=== PATIENT | female | born 1955 | race Caucasian/White ===

== ENCOUNTER 2016-11-20 08:42 | Emergency (ER) | payer MEDICARE, OTHER ==
[~2016-11-20] VITALS: Ht 167.6 cm; Wt 79.4 kg
[~2016-11-20 08:42] MED LIST: ABILIFY MAINTE300 M1 IM; ABILIFY15 MG PO; ABILIFY20 MG PO; ALBUTEROL2.5 MG/3 M INH; BISMATROL262 MG/15 PO; BUPROPION XL300 MG PO; CALCIUM 600 +1 EA12 PO; CENTRUM SILVER1 EAC5 PO; CERTAVITE SR-A1 EACH PO; CORICIDIN HBP355 ML PO; CYANOCOBAL1000 MCG/M IM; DOCUSATE SODIU100 MG PO; DOXYCYCLINE HY100 MG PO; ESTRACE1 MG PO; FERROUS SULFAT325 MG PO; HYDROCORT-PRAMO30 G1 PR; IBUPROFEN200 M1 PO; IPRAT-ALBUT 0.5-3 ML INH; LAMOTRIGINE200 MG PO; LEVAQUIN750 MG PO; LEVOFLOXACIN750 MG PO; LISINOPRIL2.5 MG PO; LORAZEPAM0.5 MG PO; METAMUCIL POWD283 GM PO; METAMUCIL POWD288 GM PO; MILLIPRED5 MG PO; NYSTATIN1 EAC1 PO; OMEPRAZOLE20 MG PO; PREDNISONE10 MG PO; PREDNISONE20 MG PO; PROAIR HFA8.5 GM INH; PROCTOSOL-HC30 GM PR; QVAR7.3 G1 INH; SPIRIVA18 MCG INH; SYMBICORT 16010.2 GM INH; TESSALON PERLE100 MG PO; VENTOLIN HFA18 GM INH; VITAMIN D1000 UNIT PO; VITAMIN D250000 UNIT PO; WELLBUTRIN XL300 MG PO; ZOLPIDEM TARTRAT5 MG PO
== END 2016-11-20 10:35 | disposition home or self-care (01) ==
LOC: ED 08:42
DX: G43.909 Migraine, unspecified, not intractable, without status migrainosus (principal); J44.9 Chronic obstructive pulmonary disease, unspecified; E11.9 Type 2 diabetes mellitus without complications; K21.9 Gastro-esophageal reflux disease without esophagitis; Z87.891 Personal history of nicotine dependence; Z90.710 Acquired absence of both cervix and uterus; Z88.0 Allergy status to penicillin; Z88.8 Allergy status to other drugs, medicaments and biological substances; Z79.52 Long term (current) use of systemic steroids; Z79.899 Other long term (current) drug therapy
CPT/HCPCS: 96361; 96374; 96375; 99282; J1200; J1885; J2765; J7030

== ENCOUNTER 2016-11-22 07:25 | Emergency (ER) | payer MEDICARE, OTHER ==
[~2016-11-22] VITALS: Ht 167.6 cm; Wt 79.4 kg
[2016-11-22] MEDS ORDERED: DALIRESP500 MCG PO (09:14)
[2016-11-22] MEDS ORDERED: LAMOTRIGINE200 MG PO (09:15)
[2016-11-22] MEDS ORDERED: CEROVITE ADVAN1 EACH PO (09:15)
[2016-11-22] MEDS ORDERED: ABILIFY MAINTE300 M1 IM (09:16)
[2016-11-22] MEDS ORDERED: METFORMIN HCL500 MG PO (09:16)
[2016-11-22] MEDS ORDERED: ZESTRIL2.5 MG PO (09:16)
[2016-11-23] MEDS ORDERED: INCRUSE ELLI62.5 MCG INH (04:34)
[2016-11-23] MEDS ORDERED: ACETAMINOPHEN500 M1 PO (04:37)
[2016-11-23] MEDS ORDERED: ALBUTEROL2.5 MG/3 M INH (04:37)
[2016-11-23] MEDS ORDERED: DOK100 MG PO (04:38)
[2016-11-23] MEDS ORDERED: IBUPROFEN400 MG PO (04:40)
== END 2016-11-22 10:32 | disposition home or self-care (01) ==
LOC: ED 07:25
DX: G43.909 Migraine, unspecified, not intractable, without status migrainosus (principal); E11.9 Type 2 diabetes mellitus without complications; J44.9 Chronic obstructive pulmonary disease, unspecified; F20.9 Schizophrenia, unspecified; Z90.710 Acquired absence of both cervix and uterus; Z98.890 Other specified postprocedural states; Z87.891 Personal history of nicotine dependence; Z88.0 Allergy status to penicillin; Z79.52 Long term (current) use of systemic steroids; Z79.899 Other long term (current) drug therapy
CPT/HCPCS: 70450; 80053; 81001; 85025; 96361; 96374; 96375; 99284; J1170; J1885; J2405; J7030

== ENCOUNTER 2016-11-23 03:49 | Emergency (ER) | payer MEDICARE, OTHER ==
[~2016-11-23] VITALS: Ht 167.6 cm; Wt 79.4 kg
[~2016-11-23 03:49] MED LIST changes: +CEROVITE ADVAN1 EACH PO; +DALIRESP500 MCG PO; +METFORMIN HCL500 MG PO; +ZESTRIL2.5 MG PO
[2016-11-23] MEDS ORDERED: INCRUSE ELLI62.5 MCG INH (04:34)
[2016-11-23] MEDS ORDERED: ALBUTEROL2.5 MG/3 M INH (04:37)
[2016-11-23] MEDS ORDERED: ACETAMINOPHEN500 M1 PO (04:37)
[2016-11-23] MEDS ORDERED: DOK100 MG PO (04:38)
[2016-11-23] MEDS ORDERED: IBUPROFEN400 MG PO (04:40)
[2016-11-24] MEDS ORDERED: METHYLPREDNISOLO4 M1 PO (12:06)
[2016-11-24] MEDS ORDERED: ZITHROMAX250 MG PO (12:06)
== END 2016-11-23 05:20 | disposition home or self-care (01) ==
LOC: ED 03:49
DX: R51 Headache (principal); J44.9 Chronic obstructive pulmonary disease, unspecified; E11.9 Type 2 diabetes mellitus without complications; K21.9 Gastro-esophageal reflux disease without esophagitis; F20.9 Schizophrenia, unspecified; F17.200 Nicotine dependence, unspecified, uncomplicated; Z90.710 Acquired absence of both cervix and uterus; Z88.8 Allergy status to other drugs, medicaments and biological substances; Z88.0 Allergy status to penicillin; Z79.899 Other long term (current) drug therapy; Z79.52 Long term (current) use of systemic steroids; Z79.84 Long term (current) use of oral hypoglycemic drugs
CPT/HCPCS: 94640; 96372; 96374; 96375; 99284; J1885; J2765; J3030

== ENCOUNTER 2016-11-24 11:04 | Emergency (ER) | payer MEDICARE, OTHER ==
[~2016-11-24] VITALS: Ht 167.6 cm; Wt 88.9 kg
[~2016-11-24 11:04] MED LIST changes: +ACETAMINOPHEN500 M1 PO; +DOK100 MG PO; +IBUPROFEN400 MG PO; +INCRUSE ELLI62.5 MCG INH
[2016-11-24] MEDS ORDERED: METHYLPREDNISOLO4 M1 PO (12:06)
[2016-11-24] MEDS ORDERED: ZITHROMAX250 MG PO (12:06)
== END 2016-11-24 12:21 | disposition home or self-care (01) ==
LOC: ED 11:04
DX: J44.1 Chronic obstructive pulmonary disease with (acute) exacerbation (principal); E11.9 Type 2 diabetes mellitus without complications; I10 Essential (primary) hypertension; K21.9 Gastro-esophageal reflux disease without esophagitis; F31.9 Bipolar disorder, unspecified; I48.91 Unspecified atrial fibrillation; F20.9 Schizophrenia, unspecified; F17.200 Nicotine dependence, unspecified, uncomplicated; Z90.710 Acquired absence of both cervix and uterus; Z88.0 Allergy status to penicillin; Z88.8 Allergy status to other drugs, medicaments and biological substances; Z79.899 Other long term (current) drug therapy
CPT/HCPCS: 36600; 71020; 80048; 82803; 85025; 99284

== ENCOUNTER 2016-11-26 03:50 | Inpatient (IN) | payer MEDICARE, OTHER ==
[~2016-11-26] VITALS: Ht 165.1 cm; Wt 85.5 kg
[~2016-11-26 03:50] MED LIST changes: +METHYLPREDNISOLO4 M1 PO; +ZITHROMAX250 MG PO
[2016-11-26] MEDS ORDERED: COLACE100 MG PO (10:41)
[2016-11-26] MEDS ORDERED: PREDNISONE5 MG PO (10:46)
--- NOTE | 2016-11-26 11:46 | NUR ---
PT STATED THAT HER HEAD FELT "A LITTLE BETTER" AFTER THE LAST DOSE OF TORADOL. PT IS SLEEPING, BUT WAKES EASILY TO VOICE. NASAL CANULA IN PLACE ON 3L.
--- NOTE | 2016-11-26 12:40 | NUR ---
MED REC COMPLETE WITH FACILITY MAY.
--- NOTE | 2016-11-26 14:22 | NUR ---
PT STATES SHE FEELS BETTER. PT IS MORE ACTIVE, MORE TALKITIVE. NO MOANING OR CRYING NOTED. PT ALERT & ORIETATITED X4. PT HAS BEEN RESTING, WAKES EASILY WITH VOICE OR TOUCH.
--- NOTE | 2016-11-26 14:54 | NUR ---
PT IS AWAKE, REQUESTING THE PHONE BE PLACED CLOSER TO HER.
--- NOTE | 2016-11-26 18:46 | NUR ---
CAME TO UNIT EARLY IN SHIFT WITH SEVERE MIGRANE HEADACHE. PAIN NOT RELIEVED BY TYLENOL OR TORADOL. TRAMADOL WAS GIVEN AND EFFECTIVE. PT REPORTS PAIN IS CONTROLED. ONE DOSE LASIX GIVEN, VOIDING WELL. 1 PERSON ASSIST FOR TRANSFER TO BSC OR CHAIR. TOLERATES REGULAR DIET WELL, BLOOD SUGAR 91 AND 133, NO INSULIN ORDERED. FIELD START IV IN L HAND.
--- NOTE | 2016-11-26 19:05 | NUR ---
SHIFT REPORT RECIEVED. PATIENT RESTING IN BED. PATIENT COMPLAINS OF 8/10 HEADACHE PAIN AND REQUESTED PRN PAIN MEDICATION. WILL RETURN WITH PAIN MEDS. CALL LIGHT IN REACH.
--- NOTE | 2016-11-26 19:50 | NUR ---
PATIENT ASSESSMENT COMPLETED AND DOCUMENTED. PATIENT GIVEN PRN MEDS FOR HEADACHE, REPORTED PAIN 8/10. EVENING MEDS GIVEN PER ORDERS. LUNG SOUNDS CLEAR THROUGHOUT, DIMINISHED IN BASES. SCHEDULED PRN NEB TREATMENT GIVEN. PULSE OX, O2 92%. 2L NC. PATIENT DENIES NAUSEA. BOWEL SOUNDS ACTIVE, ABD SOFT AND NONTENDER. PATIENT UP TO BEDSIDE CAMMODE, 1PA. APPEARDS CORDINATED, BUT WEAK. PATIENT BACK TO BED, HOB ELEVATED >45 DEGREES. CALL LIGHT IN REACH.
--- NOTE | 2016-11-26 22:00 | NUR ---
PATIENT REPORTED 7/10 PAIN, PRN PAIN MEDS GIVEN PER ORDER. PATIENT UP TO CAMMODE. SBA, APPEARD STEAD. PATIENT AAOX3. PULSE OX, O2 86% TIRTRATE O2 FROM 2L TO 3L NC. O2 INCREASED TO 92%. LUNG SOUNDS, EXPIRTORY WHEEZE THROUGHOUT. BREATHING MILDLY LABORED. PATIENT POSITIONED IN BED, HOB ELEVATED >45 DEGREES. CALL LIGHT IN REACH.
--- NOTE | 2016-11-26 22:30 | NUR ---
PATIENT ON PULSE OX, 3L NC. PATIENT RESTING IN BED. NO FURTHER REQUEST. CALL LIGHT IN REACH.
--- NOTE | 2016-11-27 00:30 | NUR ---
PATIENT REQUESTED PRN TYLENOL FOR HEADACHE PAIN 07/27. PRN MED GIVEN PER ORDER. PATIENT UP TO CAMORIONE, SBJune. PATIENT STEADY AND STATES THAT SHE "CAN GET UP TO BEDSIDE CAMMODE ON MY OWN". RN ADVISED PATIENT TO CALL FOR ASSISTANCE WHEN NEEDING TO USE THE BATHROOM FOR SAFETY REASONS. PATIENT AGREES TO CALL FOR ASSISTANCE FOR TOILETING. PATIENT BACK TO BED. NEB TREATING GIVEN PER ORDER. PULSE OX, O2 94% ON 3L NC. NO FURTHER REQUEST. CALL LIGHT IN REACH.
--- NOTE | 2016-11-27 03:15 | NUR ---
PATIENT UP IN THE RECLINER. REQUEST ASSIST BACK TO BED. PATIENT REPORT PAIN AT TOLERABLE LEVEL, 4/10. PATIENT RESTING IN BED. NO REQUEST AT THIS TIME. PULSE OX, O2 92% 3L NC. CALL LIGHT IN REACH.
--- NOTE | 2016-11-27 06:19 | NUR ---
PATIENT RESTED OFF AND ON THROUGHOUT NIGHT. PULSE OX, 3L NC, O2 88-94%. EXPIRTORY WHEEZE THROUGHOUT LUNGS, SCHEDULED DUONEB TREATMENTS. IV FEILD START LEFT IN PLACE, DRESSING CHANGED. URINE OUTPUT QS. GLUCOSE CHECKS. ADA DIET. MAINTAIN SIDE POSITION TO PREVENT ASPIRATION PER ORDERS. PRN PAIN MEDS GIVEN X3 FOR HEADACHE. PATIENT UP TO BSC WITH SBA.
--- NOTE | 2016-11-27 06:20 | NUR ---
PT UP TO BSC INDEPENDENTLY WHILE I WAS IN ROOM. STEADY ON FEET. VOIDED AND THEN RETURNED TO BED. NEW ATTENDS PROVIDED PER REQUEST. COFFEE PROVIDED PER REQUEST. PT DENIES FURTHER NEEDS, CALL LIGHT IS WITHIN REACH.
--- NOTE | 2016-11-27 06:52 | NUR ---
SPOKE WITH DR. GONZALEZ ABOUT PT BEING A DIFFICULT IV START AND THAT HER FIELD START WAS RE-DRESSED. SHE STATES THAT IT IS OK TO LEAVE THAT IV IN PLACE SO LONG IT IS PATENT.
--- NOTE | 2016-11-27 07:01 | NUR ---
ALL NOTES, ASSESSMENTS, AND CARE PLAN REVIEWED BY THIS RN.
--- NOTE | 2016-11-27 07:25 | NUR ---
RECIEVED BEDSIDE REPORT FROM FABIOLA NICHOLS AND FABIOLA DE LEON. PT SLEEPING ON LEFT SIDE, BREATHING EVEN AND UNLABORED. DID NOT WAKE TO DOOR OPENING.
--- NOTE | 2016-11-27 07:47 | NUR ---
PT UP TO CHAIR INDEPENDTENTLY. PT AWAKE AND ALERT, COMPLAINS OF INCREASING PAIN IN HEAD. PT CHATTY AND APPROPRIATE DURING ASSESMENT. LUNGS WHEEZY AND DIM. NO EDEMA.
--- NOTE | 2016-11-27 10:40 | NUR ---
PT REPORTED TO RN THAT HER LEFT CHEST HURTS. PT DESCRIBED IT "JUST HURTS". PT DENINED SOB, TINGLING, NAUSEA/VOMITING. ADVISED DR GONZALEZ, ORDER ENTERED FOR EKG. EKG DONE, RESULTS TO DR GONZALEZ. PT COMPLAINING OF PAIN IN LEFT HAND IV SITE. PT REPORTS BURNING AND STINGING. IV STOPPED.
--- NOTE | 2016-11-27 10:49 | NUR ---
PT REPORTS FEELING BETTER, WOULD LIKE TO TAKE A SHOWER. COMPUTER AIDED DESIGN DESIGNER IS ASSISTING WITH SHOWER. HR 92, PULSE OX 93.
--- NOTE | 2016-11-27 12:01 | NUR ---
PT UP TO CHAIR, NEW IV STARTED IN LEFT WRIST. IV IN LEFT HAND DC. WRAPS REMOVED FROM RIGHT HAND. PULSE OX METER REAPPLIED TO LEFT HAND.
--- NOTE | 2016-11-27 13:18 | NUR ---
PT BACK IN BED, NO COMPLAINTS OF PAIN OR DISCOMFORT. PT STATES NO ADDITIONAL EPISODES OF CHEST DISCOMFORT. PT RESTING ON RIGHT SIDE. IV SALINE LOCKED. O2 IN PLACE.
--- NOTE | 2016-11-27 17:48 | NUR ---
PT UP TO SHOWER WTIH UNDERWEAR FINISHER, TOLERATED WELL. UP TO CHAIR FOR MEALS X3. LUNG SOUNDS IMPROVING, HOWEVER STILL WHEEZY IN ALL LOBES. O2 ON AT 3L. PT COMPLAINED OF CHEST PAIN, EKG ORDERED, WAS UNREMARKABLE. PT STATED CHEST PAIN RESOLVED. VOIDING WELL, TRANSFERING TO [facility]. IMATRIX GIVEN FOR HEADACHE, EFFECTIVE. TRAMADOL GIVEN WELL, EFFECTIVE. NEW IV STARTED IN LEFT WRIST, TOLERATED WELL AND FLUSHES WELL.
--- NOTE | 2016-11-27 21:25 | NUR ---
PT ASSESSMENT COMPLETE. PT RESTING IN BED QUIETLY. PT STATES SOB IS BETTER TODAY. O2 SATS UPON ENTERING ROOM WAS 88% ON 2 LPM, INCREASED O2 TO 3 LPM, SATS NOW 90%, WILL CONTINUE TO MONITOR. PT C/O HEADACHE 10/27, ULTRAM GIVEN. PT STATES HAVING A PRODUCTIVE COUGH "AFTER NEB TREATMENTS, I AM ABLE TO COUGH UP A BUNCH OF STUFF". IV SALINE LOCKED, PATENT AND INTACT, FLUSHES WELL. HS MEDS GIVEN. CONTINUOUS PULSE OXIMETER IN PLACE. CALL LIGHT WITHIN REACH. PT DENIES ANY FURTHER NEEDS AT THIS TIME.
--- NOTE | 2016-11-28 00:15 | NUR ---
PT SLEEPING, RR EVEN AND UNLABORED. PT ON 3 LPM O2 VIA NASAL CANNULA, SATS 90%. PT APPEARS COMFORTABLE AT THIS TIME. CALL LIGHT WITHIN REACH.
--- NOTE | 2016-11-28 03:45 | NUR ---
PT AWAKE RESTING IN BED. SATS 91% ON 3 LPM O2. CRACKERS AND COFFEE GIVEN PER PT REQUEST. PT UP AMBULATING IN ROOM INDEPENDENTLY. USING BEDSIDE COMMODE, VOIDING WELL. CALL LIGHT WITHIN REACH. PT DENIES ANY FURTHER NEEDS AT THIS TIME.
--- NOTE | 2016-11-28 07:48 | NUR ---
PATIENT SITTING UP IN CHAIR. FRESH ICE WATER GIVEN. PATIENT AGREES TO SHOWER AFTER EATING BREAKFAST. CALL BUTTON IN REACH. NO OTHER NEEDS AT THIS TIME.
--- NOTE | 2016-11-28 09:20 | NUR ---
PT AWAKE SITTING UP IN RECLINER. TOOK SHOWER WITH ASSIST OF [place] M[place]S. ATE ALL OF BREAKFAST, YASMIN WELL. C/O 07/27 HEADACHE. MEDICATED WITH TRAMADOL. PT ALSO COMPLAINS OF PRODUCTIVE COUGH THAT SHE IS UNABLE TO "MOVE OUT." ALERT AND ORIENTED. IV FLUSHES WELL. CALL LIGHT WITHIN REACH. PT INDEPENDENT TO BSC.
--- NOTE | 2016-11-28 11:35 | NUR ---
PT SITTING UP IN RECLINER AWAKE. IV SL AFTER INFUSION. PT DENIES NEEDS OR CONCERNS AT THIS TIME. CALL LIGHT WITHIN REACH.
--- NOTE | 2016-11-28 11:43 | NUR ---
PATIENT SITTING UP IN CHAIR WITH LUNCH. CALL BUTTON IN REACH. NO OTHER NEEDS AT THIS TIME.
--- NOTE | 2016-11-28 14:06 | NUR ---
patient in bed resting with eyes closed. fresh ice water given. call button in reach.
--- NOTE | 2016-11-28 14:10 | NUR ---
PT RESTING IN BED, EYES CLOSED, RESP EVEN AND UNLABORED.
--- NOTE | 2016-11-28 15:55 | NUR ---
PT HAS BEEN ADMITTED SEVERAL TIMES LATELY-SHE RECOGNIZED ME, SAID STACIA. SHE WAS LOOKING OUT THE WINDOW, SITTING IN THE CHAIR EATING LUNCH. I FELT I SHOULD LET HER FINISH LUNCH, WILL FOLLOW NEEDED
--- NOTE | 2016-11-28 17:53 | NUR ---
INDEPENDENT IN ROOM. 3L 02 NC. COUGHING. ZITHROMAX. ULTRAM X1 FOR HEADACHE. MUCINEX STARTED TO ENCOURAGE BREAKUP OF LUNG FLEGM. BLOOD SUGAR CHECKS. NO COVERAGE. METFORMIN.
--- NOTE | 2016-11-28 19:40 | NUR ---
RECIEVED REPORT FROM DAY SHIFT. PT RESTING IN BED. INDEPENDENT IN ROOM. DENIES NEEDS AT THIS TIME. CALL WRIGHT IN REACH.
--- NOTE | 2016-11-28 21:15 | NUR ---
PT UP TO BSC INDEPENDENTLY. VOIDED. C/O PAIN 9/10 IN THROAT FROM COUGHING. DRY COUGH NOTED, STATES SHE IS COUGHING UP A LITTLE SPUTUM. EXP. WHEEZES AUSCULTATED THROUGHOUT LUNG FITCH. PAIN MEDS ADMINISTERED PER MAY.
--- NOTE | 2016-11-28 23:29 | NUR ---
PT SLEEPING. CONT. PULSE OX IN PLACE. 3L VIA NC IN PLACE. CALL WRIGHT IN REACH.
--- NOTE | 2016-11-29 01:13 | NUR ---
PT SLEEPING. CALL WRIGHT IN REACH.
--- NOTE | 2016-11-29 03:28 | NUR ---
PT SITTING UP IN CHAIR, STATES SHE IS "TRYING TO MANAGE BILLS." PT DENIES PAIN AT THIS TIME. NC IN PLACE WITH CONT. PULSE OX. PT TO BED. DENIES NEEDS. CALL WRIGHT IN REACH.
--- NOTE | 2016-11-29 04:33 | NUR ---
PT C/O JANSEN. STATES SHE "COUGHED HERSELF INTO A HEADACHE." PAIN MEDICATION ADMINISTERED PER MAY. WATER PITCHER FILLED. PT DENIES FURTHER REQUESTS. CALL BALL IN REACH.
--- NOTE | 2016-11-29 06:24 | NUR ---
TRAMADOL X 2 LAST NIGHT. JANSEN THIS MORNING FROM "COUGHING." 3L O2 AT 90%. GLUCOSE CHECKS-240 LAST NIGHT. INDEPENDENT IN ROOM. NO ACUTE CHANGES.
--- NOTE | 2016-11-29 07:25 | NUR ---
REPORT RECEIVED FROM FABIOLA JACOBS. PT AWAKE AND WATCHING TV. DENIES CONCERNS.
--- NOTE | 2016-11-29 08:04 | NUR ---
RT SANDY FINISHING UP HIS ASSESSMENT. STATES HE CAN WALK WITH HER LATER TODAY IF SHE WOULD LIKE. PT DENIES PAIN OR CONCERNS. STATES SHE IS FEELING MUCH BETTER. ASKED APPROPRIATE QUESTIONS REGARDING MEDICATION.
--- NOTE | 2016-11-29 08:10 | NUR ---
SPOKE TO PT REGARDING LACK OF BM. IF THE MOM RN GAVE HER EARLIER IN NIGHT WE WILL TRY ANOTHER DOSE LATER TODAY.
[2016-11-29] MEDS ORDERED: TRAMADOL HCL50 MG PO (09:25)
--- NOTE | 2016-11-29 09:53 | NUR ---
PT IS SITTING UP IN CHAIR WITH CALL LIGHT IN REACH. PT WAS GIVEN A WARM WASH CLOTH FOR FACE HANDS. PT IS DRESSED AND WAITING TO BE DISCHARGED. PT ASKED FOR COFFEE
--- NOTE | 2016-11-29 10:47 | NUR ---
CHART NOTES GIVEN TO [facility], INCLUDING FACESHEET, H AND P, DC SUMMARY, AND MEDS FOR HOME HEALTH ORDERS.
--- NOTE | 2016-11-29 21:46 | EKG ---
[facility] [address] [facility] [place] [address] Signed Normal sinus rhythm Rightward axis Borderline ECG When compared with ECG of 09-JUL-2016 18:29, No significant change was found Confirmed by CRISTI BASS MD ([id number]) on 11/29/2016 9:46:07 PM Electronically Signed By: CRISTI BASS MD 11/29/16 2146 PATIENT NAME: BRENDA ALFORDCLINT CESAR Electrocardiogram DATE OF : 57 PHYSICIAN: CRISTI BASS MD REPORT #: [id number] REPORT IS CONFIDENTIAL AND NOT TO BE RELEASED WITHOUT AUTHORIZATION
== END 2016-11-29 10:45 | disposition home or self-care (01) | DRG 191 ==
LOC: ED 03:50 → MS 07:58
PROVIDERS: ADMIT Internal Medicine
DX: J44.1 Chronic obstructive pulmonary disease with (acute) exacerbation (principal); A31.0 Pulmonary mycobacterial infection; J96.11 Chronic respiratory failure with hypoxia; G43.909 Migraine, unspecified, not intractable, without status migrainosus; E11.9 Type 2 diabetes mellitus without complications; Z79.4 Long term (current) use of insulin; K21.9 Gastro-esophageal reflux disease without esophagitis; F20.9 Schizophrenia, unspecified; K64.9 Unspecified hemorrhoids; J44.0 Chronic obstructive pulmonary disease with (acute) lower respiratory infection; Z99.81 Dependence on supplemental oxygen; I48.91 Unspecified atrial fibrillation
CPT/HCPCS: 36415; 71010; 80053; 82803; 83880; 85025; 93005; 93010; 94640; 94760; 94762; J0456; J1885; J2920

== ENCOUNTER 2016-12-03 18:38 | Emergency (ER) | payer MEDICARE, OTHER ==
[~2016-12-03] VITALS: Ht 165.1 cm; Wt 88.9 kg
[~2016-12-03 18:38] MED LIST changes: +COLACE100 MG PO; +PREDNISONE5 MG PO; +TRAMADOL HCL50 MG PO
[2016-12-03] MEDS ORDERED: CEROVITE SENIO1 EACH PO (19:07)
[2016-12-03] MEDS ORDERED: DALIRESP500 MCG PO ×2 (19:09→19:10)
[2016-12-03] MEDS ORDERED: METAMUCIL PLUS1 EACH PO (19:11)
[2016-12-03] MEDS ORDERED: METAMUCIL660 GM PO ×2 (19:12)
[2016-12-03] MEDS ORDERED: METAMUCIL660 GM (19:12)
[2016-12-03] MEDS ORDERED: PREDNISONE20 MG PO (22:28)
== END 2016-12-03 22:38 | disposition home or self-care (01) ==
LOC: ED 18:38
DX: J20.9 Acute bronchitis, unspecified (principal); E11.9 Type 2 diabetes mellitus without complications; I10 Essential (primary) hypertension; K21.9 Gastro-esophageal reflux disease without esophagitis; F31.9 Bipolar disorder, unspecified; I48.91 Unspecified atrial fibrillation; F20.9 Schizophrenia, unspecified; D64.9 Anemia, unspecified; J44.9 Chronic obstructive pulmonary disease, unspecified; Z87.891 Personal history of nicotine dependence; Z90.710 Acquired absence of both cervix and uterus; Z88.0 Allergy status to penicillin; Z88.8 Allergy status to other drugs, medicaments and biological substances; Z79.899 Other long term (current) drug therapy
CPT/HCPCS: 71010; 99283; J7512

== ENCOUNTER 2016-12-23 11:47 | Emergency (ER) | payer MEDICARE, OTHER ==
[~2016-12-23] VITALS: Ht 165.1 cm; Wt 88.9 kg
[~2016-12-23 11:47] MED LIST changes: +CEROVITE SENIO1 EACH PO; +METAMUCIL PLUS1 EACH PO; +METAMUCIL660 GM; +METAMUCIL660 GM PO
--- NOTE | 2016-12-23 22:14 | EKG ---
[facility] [address] [facility] [place] [address] Signed Normal sinus rhythm Rightward axis Pulmonary disease pattern Abnormal ECG When compared with ECG of 27-NOV-2016 10:00, Inverted T waves have replaced nonspecific T wave abnormality in Anterior leads Confirmed by CRISTI BASS MD ([id number]) on 12/23/2016 10:14:40 PM Electronically Signed By: CRISTI BASS MD 12/23/16 2214 PATIENT NAME: ALEXANDRA ALFORD Electrocardiogram DATE OF : 57 PHYSICIAN: CRISTI BASS MD REPORT #: [id number] REPORT IS CONFIDENTIAL AND NOT TO BE RELEASED WITHOUT AUTHORIZATION
== END 2016-12-23 15:48 | disposition home or self-care (01) ==
LOC: ED 11:47
DX: J44.9 Chronic obstructive pulmonary disease, unspecified (principal); E11.9 Type 2 diabetes mellitus without complications; I10 Essential (primary) hypertension; K21.9 Gastro-esophageal reflux disease without esophagitis; F31.9 Bipolar disorder, unspecified; I48.91 Unspecified atrial fibrillation; D64.9 Anemia, unspecified; Z87.891 Personal history of nicotine dependence; Z90.710 Acquired absence of both cervix and uterus; Z88.0 Allergy status to penicillin; Z88.8 Allergy status to other drugs, medicaments and biological substances
CPT/HCPCS: 71020; 80053; 83735; 84484; 85025; 93005; 93010; 99284

== ENCOUNTER 2016-12-31 04:27 | Inpatient (IN) | payer MEDICARE, OTHER ==
[~2016-12-31] VITALS: Ht 165.1 cm; Wt 82.7 kg
[2016-12-31] MEDS ORDERED: PREDNISONE20 MG PO (04:42)
[2016-12-31] MEDS ORDERED: SYMBICORT 16010.2 GM INH (04:44)
[2016-12-31] MEDS ORDERED: ULTRAM50 MG PO (04:50)
[2016-12-31] MEDS ORDERED: INCRUSE ELLI62.5 MCG INH (04:54)
[2016-12-31] MEDS ORDERED: ESTRADIOL1 MG PO (04:55)
[2016-12-31] MEDS ORDERED: CEROVITE SENIO1 EACH PO (04:55)
--- NOTE | 2016-12-31 08:32 | NUR ---
61 yr OLD FEMALE PATIENT ADMITTED TO CCU FROM ER VIA STRETCHER WITH DX OF COPD. IS AWAKE AND ALERT ON ADMIT. TO COMMODE TO VOID 300 ML CLEAR SHAKILA URINE. TRANSFER TO BED, BIPAP APPLIED /, FIO2-35%.
[2016-12-31] MEDS ORDERED: COLACE100 MG PO (10:28)
--- NOTE | 2016-12-31 11:30 | NUR ---
TYLENOL GIVEN FOR HEADACHE. ENCOURAGED TO WEAR BIPAP MUCH POSSIBLE. WHEN NOT ON BIPAP, USING O2 AT 3 LITERS.
--- NOTE | 2016-12-31 11:50 | NUR ---
MOANING. ASKING FOR BIPAP TO BE OFF AND FOOD. FEW BITES OF JELLO GIVEN.
--- NOTE | 2016-12-31 12:00 | NUR ---
UP TO COMMODE TO VOID 150 ML OF SHAKILA URINE.
--- NOTE | 2016-12-31 14:30 | NUR ---
ABGS DRAWN. BIPAP AT 35% TO NC AT 3 L AT THIS TIME PATIENT R/O THIS. TOLD PATIENT WOULD LEAVE OFF BIPAP UNTIL ABG RESULTS BACK.
--- NOTE | 2016-12-31 14:35 | NUR ---
ABG RESULTS, PH-7.31, PCO2-70.0, P02-76, HCO2-33.7. BIPAP MASK APPLIED. PATIENT CONTINUE TO ASK FOR FOOD. SITTING IN CHAIR AFTER USING COMMODE. IS TAKING SIPS OF CLEAR LIQUIDS. DENIES NAUSEA.
--- NOTE | 2016-12-31 16:15 | NUR ---
BACK TO BED.
--- NOTE | 2016-12-31 17:09 | NUR ---
UP TO CHAIR FOR DINNER.
--- NOTE | 2016-12-31 17:28 | NUR ---
CONTINUE TO SIT UP IN CHAIR, IS AWAITING DINNER. IS ON BIPAP. IVF PATENT.
--- NOTE | 2016-12-31 18:48 | NUR ---
back to bed with assist. BIPAP APPLIED.
--- NOTE | 2016-12-31 20:51 | NUR ---
PATIENT REQUESTS HS LORAZEPAM. PATIENT TAKES NIGHTLY AT [facility] 0.5MG TAB OF ATIVAN. DR BASS NOTIFIED VIA TELEPHONE.
--- NOTE | 2016-12-31 20:52 | EKG ---
[facility] [address] [facility] [place] [address] Signed Sinus tachycardia with occasional premature ventricular complexes Rightward axis Borderline ECG When compared with ECG of 23-DEC-2016 12:17, premature ventricular complexes are now present Nonspecific T wave abnormality has replaced inverted T waves in Anterior leads Confirmed by CRISTI BASS MD ([id number]) on 12/31/2016 8:52:07 PM Electronically Signed By: CRISTI BASS MD 12/31/162051 PATIENT NAME: ALEXANDRA ALFORD Electrocardiogram DATE OF : 57 PHYSICIAN: CRISTI BASS MD REPORT #: [id number] REPORT IS CONFIDENTIAL AND NOT TO BE RELEASED WITHOUT AUTHORIZATION
--- NOTE | 2017-01-01 02:36 | NUR ---
PATIENT UP TO BSC TO VOID. PATIENT SOB WITH EXERTION ON 4L NC WHEN UP TO BSC. HAS PRODUCTIVE COUGHING EPISODE WITH LARGE AMOUNT OF SPUTUM EXPELLED.
--- NOTE | 2017-01-01 05:33 | NUR ---
PATIENT TOLERATED BIPAP WELL DURING NIGHT. USES 4L OF O2 VIA NC WHEN UP TO BSC. SOB WITH EXERTION WHEN UP TO BSC. PATIENT CALLS APPROPRIATLEY AND IS SBA WHEN UP TO BSC.
--- NOTE | 2017-01-01 08:00 | NUR ---
ALREADY ATE BREAKFAST. ACCUCHECK HELD. ASSESSMENT DONE. TALKED WITH PATIENT ABOUT PLAN OF CARE. IS UNDERSTANDING. IVF PATENT. ENC USE OF BIPAP.
--- NOTE | 2017-01-01 10:00 | NUR ---
HAS BEEN UP TO COMMODE SEVERL TIMES TO VOID. IS LESS DYSPNIC WITH EXERTION. STATES SHE FEELS MUCH BETTER TODAY.
--- NOTE | 2017-01-01 12:11 | NUR ---
transferred to room 126 via bed. IS HOUSE CONVEN. SITTING UP IN BED EATING LUNCH.
--- NOTE | 2017-01-01 13:21 | NUR ---
1316-SPUTUM SAMPLE OBTAINED AND SENT TO LAB
--- NOTE | 2017-01-01 15:21 | NUR ---
SPONGE BATH GIVEN. REFUSED SHOWER. SITTING IN CHAIR.
--- NOTE | 2017-01-01 18:21 | NUR ---
IN CHAIR EATING. W/O C/O.
--- NOTE | 2017-01-01 18:45 | NUR ---
BACK TO BED. O2 SAT ON 3L UPON RETURN TO BED, 83%. BIPAP APPLIED.
--- NOTE | 2017-01-01 18:48 | NUR ---
STATES SHE HAD A GOOD DAY. FEELS MUCH BETTER. USING BIPAP AT THIS TIME.
--- NOTE | 2017-01-02 03:45 | NUR ---
PT WORE BIPAP FROM 2300 UNTIL 0200. PLACED ON NC 4L DURING BIPAP BREAK. CURRENTLY PLACED ON BIPAP AGAIN AFTER UP TO C. PT HAS MILD DYSPNEA ON EXERTION.
--- NOTE | 2017-01-02 09:09 | NUR ---
PT AWAKE, VITAL SIGNS COMPLETED. PT ATE APPROX 50% OF BREAKFAST, A.M. MEDS GIVEN AND R.T. HERE TO GIVEN NEB TX. ASSESSMENT COMPLETED, PT WITH EXP WHEEZES BILAT BUT STATES FEELING BETTER AFTER NEB TX. BIPAP IN ROOM BUT PT STATES "I'LL WAIT TO USE THAT". PT UP TO BS WITH ONE PERSON ASSIST - VOIDED 150 MLS CLEAR YELLOW URINE. PT THEN AMBULATED TO HENRY CHAIR WITH ASSIST.
--- NOTE | 2017-01-02 09:19 | NUR ---
REPORT GIVEN TO MARKOS Pressley ON MED/SURG.
--- NOTE | 2017-01-02 09:50 | NUR ---
PATIENT TRANSFERED FROM CCU. SITTING UP IN CHAIR. FRESH ICE WATER GIVEN. WARM BLANKET ON. CALL BUTTON IN REACH. NO OTHER NEEDS AT THIS TIME.
--- NOTE | 2017-01-02 10:00 | NUR ---
PT TRANSFERED FROM CCU TO ROOM 125 VIA RECLINER CHAIR. RECIEVED REPORT FROM FABIOLA BERRIOS PRIOR TO PT'S TRANSFER TO FLOOR, VIA TELEPHONE. PT IS ON 3L 02 VIA NC, REPORTS "A LITTLE BIT" OF SHORTNESS OF BREATH AT REST. PT IS ALERT, ORIENTED X 4. HANDS HAVE TREMORS, PT REPORTS THAT HER HANDS TREMBLE OFF AND ON, RELATED TO HER PSYCHIATRIC MEDICATIONS.
--- NOTE | 2017-01-02 10:31 | NUR ---
PT UP TO BEDSIDE COMMODE WITH 1 PERSON STANDBY ASSIST WITH FWW. VOIDED 325 CC URINE, THEN TRASFERED BACK TO RECLINER.
--- NOTE | 2017-01-02 12:10 | NUR ---
ONE PERSON ASSIST PATIENT TO BSC. CALL BUTTON IN REACH.
--- NOTE | 2017-01-02 12:21 | NUR ---
PT UP ON BEDSIDE COMMODE. STANDBY ASSIST WITH FWW BACK TO RECLINER. PT VOIDED 500CC URINE. CALL LIGHT IN REACH, PERSONAL SUPPLIES AT SIDE, PT DENIED OTHER NEEDS.
--- NOTE | 2017-01-02 14:01 | NUR ---
PATIENT SITTING UP IN CHAIR WATCHING TV. CALL BUTTON IN REACH. FRESH ICE WATER GIVEN. NO OTHER NEEDS AT THIS TIME.
--- NOTE | 2017-01-02 14:09 | NUR ---
PT HAD 2 ORDERS FOR CONTINUOUS PULSE OXIMETER, 1 ORDER WAS D/C'D BY DR. BASS ON TRANSFER TO MED/SURG, OTHER ORDER REMAINED ACTIVE. CLARRIFIED WITH DR. BASS, WHO GAVE VERBAL ORDER TO D/C PULSE OXIMETER.
--- NOTE | 2017-01-02 14:24 | NUR ---
PT SITTING UP IN RECLINER. PREPARING TO WORK WITH KEZIA PHYSICAL THERAPIST. PT REMAINS ON 3L O2 VIA NC.
--- NOTE | 2017-01-02 16:30 | NUR ---
PATIENT RESTING IN BED WATCHING TV. CALL BUTTON IN REACH. NO NEEDS AT THIS TIME.
--- NOTE | 2017-01-02 17:16 | NUR ---
PT C/O 10 THROAT PAIN FROM COUHG. GAVE ACETAMINOPHEN 500 MG PO PRN. PT EATING DINNER. DENIES OTHER NEEDS. BG 124, NO SLIDING SCALE INSULIN INDICATED.
--- NOTE | 2017-01-02 17:42 | NUR ---
PATIENT SITTING UP IN BED EATING DINNER WATCHING TV. FRESH ICE WATER GIVEN. CALL BUTTON IN REACH. NO OTHER NEEDS AT THIS TIME.
--- NOTE | 2017-01-02 19:25 | NUR ---
RECEIVED REPORT FROM DAY SHIFT RN. PATIENT IS RESTING IN BED WITH EYES CLOSED RR 17
--- NOTE | 2017-01-02 21:15 | NUR ---
PATIENT ASSESMENT COMPLETED. PATIENTS EVENING MEDICATIONS GIVEN PER ORDER. PATIENT ALSO GIVEN PRN TYLENOL PER ORDER FOR A HEADACHE. PATIENT IS ON 3L VIA NC. PATIENT HAS A NON PRODUTIVE COUGH. PATIENT IS REQUESTING TO TAKE A SHOWER. MACHINE STEMMER IS IN THE ROOM TO ASSIST W/SHOWERING.
--- NOTE | 2017-01-02 23:00 | NUR ---
PATIENT REQUESTED ATIVAN. PATIENT GIVEN PRN ATIVAN PER ORDER. PATIENT DENIES ANY FURTHER NEEDS AT THIS TIME. CALL LIGHTIN REACH AND PATIENT IS UP IN THE RECLINER.
--- NOTE | 2017-01-02 23:07 | NUR ---
PATIENT TOOK SHOWER HER SELF, STANDBY ASSIST.
--- NOTE | 2017-01-03 00:45 | NUR ---
PATIENT ASSISTED TO THE BED. RT IN THE ROOM AND ASSISTED PATIENT ONTO THE BIPAP. PATIENTS CALL LIGHT IN REACH.
--- NOTE | 2017-01-03 03:24 | NUR ---
PATIIENT GIVEN PRN PAIN MEDICATION FOR 5/10 PAIN IN HER BACK. PATIENT IS ON 3L VIA NC AND OFF OF THE BIPAP. PATIENT IS RESTING IN BED WATCHING TV. PATIENT DENIES ANY FURTHER NEEDS AT THIS TIME. CALL KARYN KOROAM.
--- NOTE | 2017-01-03 03:59 | NUR ---
IV ABX COMPLETED. PATIENT IS NOW SL. PATIENT PLACED BACK ON BIPAP. NO FURTHER NEEDS AT THIS TIME CALL LIGHT IN REACH.
--- NOTE | 2017-01-03 05:12 | NUR ---
PATIENT CALLED AND REQUEST TO BE PLACED BACK ON 3L VIA NC AND THE BIPAP REMOVED. NO FURTHER REQUESTS. CALL LIGHTIN REACH.
--- NOTE | 2017-01-03 05:47 | NUR ---
PATIENT RESTED ON AND OFF THROUGHTOUT THE SHIFT. PATIENT RECEIVED PRN TYLENOL X2 FOR A JANSEN AND BACK PAIN. PATIENT IS ON AN ADA DIET AND IS TOLERATING IT WELL. PATIENTS IV IS SL. PATIENT IS A SBA AND IS STEADY ON HER FEET. PATIENT HOWEVER DOES HAVE IN INCREASE IN SOB W/ACTIVITY. PATIENT IS ON 3L VIA NC. PATIENT WORE BIPAP FOR ABOUT 3 HOURS. PATIENTIS AAOX3 AND USES CALL LIGHT APPROPRIATELY.
--- NOTE | 2017-01-03 06:22 | NUR ---
PATIENT IS RESTING IN BED WATCHING TV. PATIENT DENIES ANY NEEDS AT THIS TIME. CALL LIGHT IN REACH.
--- NOTE | 2017-01-03 07:46 | NUR ---
PT AWAKE, ALERT, ORIENTED X 4. DENIES PAIN AT THIS TIME. PT IS SITTING UP IN RECLINER. PROVIDED PT WITH DIABETIC DIET EDUCATION. PT VERBALIZED UNDERSTANDING.
--- NOTE | 2017-01-03 09:00 | NUR ---
Stand by assist with FWW to BSC and back. patient refused shower due to having one last night. No other needs at this time.
--- NOTE | 2017-01-03 09:08 | NUR ---
PT SITTING UP IN RECLINER, REMAINS ON 3L O2 VIA NC. ATE 90% OF BREAKFAST, TOLERATED WELL. DENIES NEEDS AT THIS TIME.
--- NOTE | 2017-01-03 10:45 | NUR ---
patient resting in bed. fresh ice water given. no other needs at this time. call button in reach.
--- NOTE | 2017-01-03 12:36 | NUR ---
PT TRANSFERED FROM BED TO BEDSIDE COMMODE, VOIDED 300 CC URINE, AND WAS ALSO INCONTINENT OF URINE. TRANSFERED FROM COMMODE TO RECLINER WITH FWW WITH STANDBY ASSIST. REMAINS ON 3L O2 VIA NC. NO S/S SHORTNESS OF BREATH WITH TRANSFER. PT REPORTED THAT SHE DID NOT NOTICE FEELING SHORT OF BREATH WITH TRANSFER.
--- NOTE | 2017-01-03 13:35 | NUR ---
PATIENT ONE PERSON ASSIST WITH FWW FROM CHAIR TO BED. CALL BUTTON IN REACH. FRESH ICE WATER GIVEN. NO OTHER NEEDS AT THIS TIME
--- NOTE | 2017-01-03 13:52 | NUR ---
PT IN BED, AWAKE, RESTING. REMAINS ON 3L O2 VIA NC. KEZIA PHSICAL THERAPIST IN WITH PT AT THIS TIME.
--- NOTE | 2017-01-03 15:48 | NUR ---
stand by assist with walker to BSC and back to chair. call button in reach. no other needs at this time.
--- NOTE | 2017-01-03 16:20 | NUR ---
PT SITTING UP IN RECLINER. ON 3L O2 VIA NC, DENIES SHORTNESS OF BREATH AT REST. DENIES NEEDS AT THIS TIME.
--- NOTE | 2017-01-03 17:12 | NUR ---
PATIENT SET UP TO EAT DINNER. NO NEEDS AT THIS TIME.
--- NOTE | 2017-01-03 18:24 | NUR ---
PT IN BED, DENIES SHORTNESS OF BREATH, OXYGEN SATURATION LEVEL 96% ON 3L O2 VIA NC. PT IS FILING HER FINGERNAILS. PROVIDED PT WITH CHAPSTICK AND LOTION. PT DENIED OTHER NEEDS. ATE 90% OF DINNER.
--- NOTE | 2017-01-03 18:45 | NUR ---
PATIENT UP TO BSC. NO OTHER NEEDS.
--- NOTE | 2017-01-03 21:25 | NUR ---
PT ASSESSMENT COMPLETE. PT SITTING UP IN BED. PT DENIES ANY SOB AT THIS TIME, ON 3 LPM O2 VIA NASAL CANNULA-CHRONIC. PT STATES SHE IS FEELING BETTER TODAY. PT C/O PAIN WITH COUGHING, TYLENOL GIVEN. IV SALINE LOCKED, FLUSHES WELL, PATENT AND INTACT, IV ABX INITIATED PER ORDERS. PT VOIDING WELL IN BEDSIDE COMMODE. PRN ATIVAN GIVEN PER PT REQUEST. PT ALERT AND ORIENTED. PT WATCHING TV. PT DENIES ANY FURTHER NEEDS AT THIS TIME. CALL LIGHT WITHIN REACH.
--- NOTE | 2017-01-04 00:31 | NUR ---
PT SLEEPING, RR EVEN AND UNLABORED. PT APPEARS COMFORTABLE AT THIS TIME. PT ON 3 LPM O2 VIA NASAL CANNULA. IV ABX INFUSING WITHOUT DIFFICULTY. CALL LIGHT WITHIN REACH.
--- NOTE | 2017-01-04 01:30 | NUR ---
PT CALLED. PT DOESN'T WANT TO WEAR BIPAP AT THIS TIME, TOOK BIPAP OFF STATING IT MAKES HER THIRSTY. PT BACK ON 3 LPM O2 VIA NASAL CANNULA. IV ABX COMPLETE, PT NOW SALINE LOCKED. SUGAR-FREE PUDDING GIVEN PER PT REQUEST. CALL LIGHT WITHIN REACH. PT DENIES ANY FURTHER NEEDS AT THIS TIME.
--- NOTE | 2017-01-04 04:16 | NUR ---
PT AWAKE, REFUSING TO WEAR BIPAP AT THIS TIME. PT STATES BIPAP "MAKES ME THIRSTY", BACK ON 3 LPM O2 VIA NASAL CANNULA. FRESH WATER GIVEN. IV SALINE LOCKED. PT RESTING IN BED. CALL LIGHT WITHIN REACH. PT DENIES ANY FURTHER NEEDS AT THIS TIME.
--- NOTE | 2017-01-04 05:48 | NUR ---
PT HAD AN UNEVENTFUL NIGHT. PT AMBULATES WITH SBA WITH FWW, DOES GET SOB WITH EXERTION. PT ON 3 LPM O2, WHICH IS CHRONIC. PT WORE BIPAP INTERMITTENTLY THROUGH NIGHT. IV SALINE LOCKED. RECEIVING TYLENOL FOR PAIN. PRN NEB TX AVAILABLE. PT DENIES ANY N/V, TOLERATING PO WELL. PT HAD BM THIS SHIFT, VOIDING WELL. RECEIVING IV ABX, PLAN IS TO POSSIBLY D/C BACK TO [facility] AROUND MONDAY.
--- NOTE | 2017-01-04 07:10 | NUR ---
HANDOFF REPORT RECEIVED FROM PETROLEUM REFINERY WORKER RN.
--- NOTE | 2017-01-04 08:20 | NUR ---
PATIENT SITTING UP IN BED WITH BREAKFAST. REFUSED SHOWER. PATIENT WILL CALL WHEN SHE IS READY FOR A SPONGE BATH. RN IN ROOM CALL BUTTON IN REACH.
--- NOTE | 2017-01-04 08:20 | NUR ---
PT RESTING IN BED. PT ON 3L NC, LUNG SOUNDS WITH EXPIRATORY WHEEZE AND DIMINISHED BASES, PT COMPLAINT OF SOB, PRODUCTIVE COUGH, CLEAR TENACIOUS SPUTUM. PT DENIES PAIN AT THIS TIME. PT TOLERATING ADA DIET, BREAKFAST AT BEDSIDE, BOWEL TONEAS ACTIVE. IV ABX INFUSING. PT WITH FAINT PEDAL PULSES, LEGS COOL TO TOUCH, DENIES NUMBNESS/TINGLING. BEDSIDE COMMODE AT BEDSIDE, DISCUSSED ACTIVITY WITH PT, INSTRUCTED TO CALL FOR ASSISTANCE TO AMBULATE TO BATHROOM OR CHAIR. PT DENIES OTHER NEEDS AT THIS. DISCUSSED PLAN OF CARE.
--- NOTE | 2017-01-04 08:56 | NUR ---
Patient medicated with 500 mg tylenol for 7/10 back pain. Patient denies other needs, call light in reach.
--- NOTE | 2017-01-04 09:00 | NUR ---
patient up to chair assisted with bed bath. lotion on. clean linenes no other needs at this time.
--- NOTE | 2017-01-04 10:13 | NUR ---
PT CALLED FOR SOME PAPER AND A PEN, BROUGHT HER SOME AND SHE IS DOING WELL. KITCHEN STAFF CALLED AND SAID SHE HAS ORDERED TWO SNACKS ALREADY AND IS WELL OVER HER LIMIT OF CARBS, SO I NOTIFIED HER NURSE.
--- NOTE | 2017-01-04 11:00 | NUR ---
patient sitting up in chair watching tv. fresh ice water given. no other needs at this time.
--- NOTE | 2017-01-04 11:04 | NUR ---
PT SITTING IN CHAIR. PT DENIES PAIN, TYLENOL EFFECTIVE FOR BACK PAIN. PT DENIES NEEDS AT THIS TIME.
--- NOTE | 2017-01-04 11:55 | NUR ---
PT SITTING IN CHAIR, GIVEN LUNCHA TRAY. DISCUSSED ADA SNACK OPTIONS.
--- NOTE | 2017-01-04 13:02 | NUR ---
PATIENT SITTING UP IN CHAIR TALKING ON PHONE FRESH ICE WATER GIVEN. NO OTHER NEEDS AT THIS TIME.
--- NOTE | 2017-01-04 13:27 | NUR ---
PT WITH LARGE FORMED BOWEL MOVEMENT. PT SALINE LOCKED, INFUSION COMPLETED. PHYSICAL THERAPY AT BEDSIDE TO WORK WITH PT.
--- NOTE | 2017-01-04 13:47 | NUR ---
PT WALKING IN HALLS WITH P.T. USING A WALKER. KEZIA CLOSE BY. PT SAID STACIA, SAID IT FELT GOOD TO BE UP, BUT WAS FOCUSING ON WALKING. EXTENDED A BLESSING AND ENCOURAGED HER TO KEEP WORKING. WILL CONTINUE TO FOLLOW
--- NOTE | 2017-01-04 14:35 | NUR ---
PT SITTING IN CHAIR. PT DENIES PAIN. PT LUNG SOUNDS CLEAR ON RIGHT, DIMINISHED TO BASES, EXPIRATORY WHEEZE TO RIGHT UPPER LOBE. PT ON 3L NC. IV SALINE LOCKED. PT TOLERATING ADA DIET. PT DENIES NEEDS AT THIS TIME. PT EXPECTING VISIT FROM COUNSELOR.
--- NOTE | 2017-01-04 14:40 | NUR ---
patient sitting up in chair. this TRANSIT MIXER DRIVER emptied the BSC. call button in reach. no other needs at this time.
--- NOTE | 2017-01-04 18:22 | NUR ---
PT HAD UNEVENTFUL DAY. PT ON 3L NC, LUNG SOUNDS WITH EXPIRATORY WHEEZE. PT DENIES NAUSEA, TOLERATING ADA DIET, NO BLOOD GLUCOSE ACCUCHECKS. PT INDEPENDENT TO BEDSIDE COMMODE, SBA FOR AMBULATION. SALINE LOCKED, IV CEFEPIME. PT VOIDING QS, HAD BM TODAY.
--- NOTE | 2017-01-04 18:23 | NUR ---
STANDBY ASSIST WITH WALKER TO BED. CALL BUTTON IN REACH. PATIENT ON PHONE.
--- NOTE | 2017-01-04 20:00 | NUR ---
RECEIVED REPORT AT 1900. FOUND PT IN BED WATCHING TV.
--- NOTE | 2017-01-04 22:00 | NUR ---
V/S ARE WDL, ALL LOBES WERE CLEAR, NO PERIPHERAL EDEMA HAS BEEN NOTED, PT DENIED SOB OR PAIN. NO NEW ISSUES NOTED SO FAR.
--- NOTE | 2017-01-04 22:00 | NUR ---
V/S ARE WDL, ALL LOBES HAD EXPIRATORY WHEEZING, PT DENIES SOB OR PAIN. PT IS INDEPENDENTTO BSC AND IS MOVINGWELL. NO PERIPHERAL EDEMA NOTED. NO NEW ISSUES NOTED.
--- NOTE | 2017-01-04 23:10 | NUR ---
NURSE IN ROOM
--- NOTE | 2017-01-05 01:24 | NUR ---
PT IS AWAKE IN BED WATCHING TV.
--- NOTE | 2017-01-05 01:45 | NUR ---
NURSE IN ROOM
--- NOTE | 2017-01-05 02:00 | NUR ---
PT IS BACK IN BED WITH BI-PAP ON.
--- NOTE | 2017-01-05 03:49 | NUR ---
GOT PATIENT UP TO BSC. BROUGHT IN A FRESH CUP OF COFFEE. PATIENT SITTING UP ON SIDE OF BED TO DRINK COFFEE. CAN GET HERSELF BACK INTO BED SAFELY.
--- NOTE | 2017-01-05 04:05 | NUR ---
PT IS SLEEPING AT THIS TIME.
--- NOTE | 2017-01-05 05:33 | NUR ---
V/S ARE WDL, PT HAS HAD EXPIRATORY WHEEZING FOR BOTH ASSESSMENTS THIS SHIFT. PT HAS DENIED SOB THIS SHIFT SO FAR. PT HAS RECEIVED RT TREATMENTS. PT HAS BEEN WEARING BI-PAP ALL NIGHT. PT IS DOING WELL INDEPENDENT TO BS. NO PERIPHERAL EDEMA NOTED. NO NEW ISSUES NOTED SO FAR.
--- NOTE | 2017-01-05 07:15 | NUR ---
BEDSIDE HANDOFF REPORT RECEIVED FROM ORDERING MACHINE OPERATOR RN. PT SITTING ON EDGE OF BED. PT ON 3L NC. SALINE LOCKED. PT DENIES NEEDS AT THIS TIME.
--- NOTE | 2017-01-05 07:20 | NUR ---
BEDSIDE REPORT RECEIVED FROM FABIOLA FRANCO. PT SITTING UP AT SIDE OF BED, 3L OXYGEN BY NC IN PLACE. PT HAS NO REQUESTS AT THIS TIME. CALL LIGHT WITH PT.
--- NOTE | 2017-01-05 08:41 | NUR ---
PT ASSISTED TO CHAIR, SBA. NICOTINE PACTH FELL OFF, DISPOSED. BSC EMPTIED, 350 ML OF YELLOW URINE. PT DENIES OTHER NEEDS AT THIS TIME.
--- NOTE | 2017-01-05 09:35 | NUR ---
PT SITTING IN CHAIR. IV ABX INFUSING. NICOTINE PACTH APPLIED TO RIGHT ARM. PT DENIES OTHER NEEDS AT THIS TIME.
--- NOTE | 2017-01-05 10:12 | NUR ---
PT MORNING ASSESSMENT COMPLETE. PT COMPLAINING OF THROAT, CHEST DISCOMFORT FROM COUGHING, STATING PAIN IS 5/10. ADMINISTERED PRN TYLENOL. WHEEZES PRESENT ON EXPIRATION THROUGHOUT ALL LOBES, PT HAS OCCASIONAL DRY COUGH. PT ON 3L BY NASAL CANNULA, DENIES SOB. CALL LIGHT IN REACH. PT HAS NO ADDITIONAL REQUESTS AT THIS TIME.
--- NOTE | 2017-01-05 10:15 | NUR ---
PT IS SITTING UP IN CHAIR WITH CALL LIGHT IN REACH. PT DID NOT NEED ANYTHING AT THE MOMENT
--- NOTE | 2017-01-05 12:20 | NUR ---
CHECKED ON PT. PT ATE 75% OF LUNCH, ASSISTED PT TO COMMODE. PT ON 3L NC, IV ANTIBIOTICS INFUSING. CALL LIGHT IN REACH.
--- NOTE | 2017-01-05 12:46 | NUR ---
DR. BASS IN TO SEE PT. MADE PLAN WITH PT TO DISCHARGE TOMORROW AFTER AFTERNOON ANTIBIOTIC DOSE. PT VERBALIZED UNDERSTANDING. PT UP IN CHAIR WATCHING TV, CALL LIGHT IN REACH. IV ANTIBIOTICS INFUSING.
[2017-01-05] MEDS ORDERED: NICOTINE1 EAC1 TD (12:49)
[2017-01-05] MEDS ORDERED: PREDNISONE5 MG PO ×2 (12:51→12:55)
[2017-01-05] MEDS ORDERED: PREDNISONE20 MG PO (12:53)
--- NOTE | 2017-01-05 14:09 | NUR ---
IV ABX INFUSION COMPLETED. PT SALINE LOCKED. PHYSICAL THERAPY WORKING WITH PT NOW. PT DENIES OTHER NEEDS AT THIS TIME.
--- NOTE | 2017-01-05 14:16 | NUR ---
PT IN HALLWAY WALKING WITH FWW AND 1PA BY PHYSICAL THERAPY.
--- NOTE | 2017-01-05 14:17 | NUR ---
VERBAL ORDER FROM DR. GALLO TO GIVE 2100 DOSE OF IV CEFEPIME BETWEEN [phone] TOMORROW BEFORE DSICHARGE. SPOKE WITH PHARMACY ABOUT EXTENDED INFUSION RATE, PHARMACY OK TO INFUSE QUICKLY OVER 30 MINUTE TO ONE HOUR. NURSE NOTIFY NOTE ORDERED.
--- NOTE | 2017-01-05 14:34 | NUR ---
PT IS CURRENTLY WORKING WITH PHYSICAL THERAPY. WILL DO VITALS WHE SHE IS FINISHED
--- NOTE | 2017-01-05 15:40 | NUR ---
PT ASSESSMENT COMPLETE. PT CONTINUES TO HAVE EXPIRATORY WHEEZE THROUGHOUT LUNGS. PT DENIES PAIN AT THIS TIME. PT ASSISTED TO SHOWER, IV SITE COVERED. INSTRUCTED PT TO USE CALL LIGHT WHEN FINISHED WITH SHOWER.
--- NOTE | 2017-01-05 16:08 | NUR ---
ASSISTED PT OUT OF SHOWER, GAVE PT WARM BLANKET. PT UP TO SINK USING MOUTHWASH. GENE FRANKLIN IN ROOM WITH PT. PT ON 3L OXYGEN BY NC. IV SALINE LOCKED.
--- NOTE | 2017-01-05 16:10 | NUR ---
PT SHOWERED BUT DID NOT WASH HER HAIR. PT IS NOW SITTING UP IN CHAIR GETTING A BREATHING TREATMENT
--- NOTE | 2017-01-05 18:32 | NUR ---
PT HAS HAD OCCASIONAL EXPIRATORY WHEEZE THROUGHOUT SHIFT. HAS COMPLAINED OF SOME SOB WITH WORKING WITH PHYSICAL THERAPY AND DEEP BREATHING, ON 3L NC THROUGHOUT SHIFT. PT HAD SHOWER TODAY INDEPENDENTLY. CONTINUES TO BE ONE PERSON STAND BY ASSIST WITH FWW AND INDEPENDENTLY USES COMMODE.
--- NOTE | 2017-01-05 18:32 | NUR ---
PT IS RESTING IN BED SAFELY WITH CALL LIGHT IN REACH. PT DID NOT NEED ANYHTING ELSE AT THE MOMENT
--- NOTE | 2017-01-05 18:59 | NUR ---
ANSWERED PT CALL LIGHT. EMPTIED COMMODE. PT SITTING UP AT SIDE OF BED. CALL LIGHT IN REACH. NO ADDITIONAL REQUESTS.
--- NOTE | 2017-01-05 20:00 | NUR ---
RECEIVED REPORT AT 1900. FOUND PT IN BED EATING HER DINNER. PT DENIED SOB AND PAIN.
--- NOTE | 2017-01-05 22:00 | NUR ---
V/S ARE WDL, ALL LOBES STILL HAVE EXPIRATORY WHEEZING PRESENT. PT STILL HAS A PRODUCTIVE COUGH PRESENT WHICH IS AGREVATED WITH DEEP BREATHING. NO NEW ISSUES NOTED SO FAR. OVERALL PT SEEMS STRONGER.
--- NOTE | 2017-01-05 23:53 | NUR ---
PT IS SLEEPING AT THIS TIME. BI-PAP IS ON, TYLENOL AND ATIVAN WERE GIVEN PER ORDER.
--- NOTE | 2017-01-06 02:24 | NUR ---
PT IS BACK IN BED SLEEPING AT THIS TIME. PT REFUSES BI-PAP AT THIS TIME.
--- NOTE | 2017-01-06 03:47 | NUR ---
PT IS SLEEPING AT THIS TIME.
--- NOTE | 2017-01-06 05:53 | NUR ---
V/S ARE WDL, ALL LOBES STILL HAVE EXPIRATORY WHEEZING DURING BOTH ASSESSMENTS. I&O ARE WDL, PT SLEPT FOR MOST OF THIS SHIFT. BI-PAP WAS ON ALL NIGHT. PAIN IS WELL CONTROLLED WITH PRN MEDS AVAILABLE. "[facility]" WILL BE CALLED THIS MORNING FOR HOME OXYGEN NEEDS OF THIS PT. NO NEW ISSUES NOTED SO FAR THIS SHIFT.
--- NOTE | 2017-01-06 07:10 | NUR ---
BEDSIDE REPORT RECEIVED FROM FABIOLA FRANCO. PT AWAKE, SITTING UP IN BED. PT HAS COFFEE. REQUESTED LONGER OXYGEN TUBING FOR NC, SWITCHED TUBING. PT ON 3L NC. NO ADDITIONAL REQUESTS AT THIS TIME. PT HAS CALL LIGHT IN REACH.
--- NOTE | 2017-01-06 07:44 | NUR ---
PATIENT SITTING ON SIDE OF BED AWAKE. EMPTIED BEDSIDE COMMODE. PATIENT REFUSED SHOWER SHE SHOWERED YESTERDAY. REMINDED HER TO CALL IF SHE CHANGED HER MIND OR NEEDED ANYTHING.
--- NOTE | 2017-01-06 08:30 | NUR ---
PT ASSESSMENT COMPLETE. EXPIRATORY WHEEZE AUSCULTATED THROUGHOUT LUNGS. PT CONTINUES TO COUGH UP THICK CLEAR COLORED SPUTUM. PT DENIES PAIN AT THIS TIME. IV ANTIBIOTICS INFUSING. IV SITE PATENT, FLUSHES WELL. RESPIRATORY THERAPY NOW PRESENT IN PT ROOM. CALL LIGHT IN REACH.
--- NOTE | 2017-01-06 11:04 | NUR ---
EMPTIED HAT IN COMMODE. PATIENT SITTING ON SIDE OF BED
--- NOTE | 2017-01-06 11:50 | NUR ---
CHECKED ON PT, EMPTIED COMMODE FOR PT. BROUGHT PT MORE COFFEE. NO ADDITIONAL REQUESTS AT THIS TIME. DIETARY IN ROOM WITH PT'S LUNCH. CALL LIGHT IN REACH.
--- NOTE | 2017-01-06 12:35 | NUR ---
PATIENT IN BED. EMPTIED HAT IN TOILET. TOLD HER TO CALL WHEN SHE'S READY TO GET DRESSED AND BE DISCHARGED.
--- NOTE | 2017-01-06 13:10 | NUR ---
IN PT ROOM TO CHECK ON PT. PT QUESTIONING PLAN FOR DISCHARGE. EDUCATED PT ON PLAN, TO RECEIVE ANTIBIOTIC, REMOVE IV, ARRANGE TRANSPORT FOR THIS EVENING. PT VERBALIZED UNDERSTANDING. PT HAS CALL LIGHT IN REACH. NO ADDITIONAL REQUESTS AT THIS TIME.
--- NOTE | 2017-01-06 13:29 | NUR ---
ANSWERED CALL LIGHT, EMPTIED PT'S COMMODE. PT REQUESTED SALAD FROM [facility]. DELIVERED SALAD TO PT. PT HAS NO ADDITIONAL REQUESTS. CALL LIGHT IN REACH.
--- NOTE | 2017-01-06 15:24 | NUR ---
PATIENT DOING WELL. WILL BE DISCHARGED ONCE ANTIBIOTICS ARE FINISHED INFUSING.
--- NOTE | 2017-01-06 16:00 | NUR ---
PT ASSESSMENT COMPLETE. PT HAS OCCASIONAL EXP WHEEZE, PTS LUNGS OTHERWISE SOUND CLEAR THIS AFTERNOON. PT IS NOT COUGHING DURING ASSESSMENT. PT HAS CALL LIGHT IN REACH. ANTIBIOTICS INFUSING.
== END 2017-01-06 16:40 | disposition home or self-care (01) | DRG 177 ==
LOC: ED 04:27 → CCU 08:02 → MS 01-02 09:30 → CCU 01-02 11:45 → MS 01-02 11:45 → CCU 01-02 11:45 → MS 01-02 11:45
PROVIDERS: ADMIT Internal Medicine
DX: J15.1 Pneumonia due to Pseudomonas (principal); J96.21 Acute and chronic respiratory failure with hypoxia; J96.22 Acute and chronic respiratory failure with hypercapnia; J44.1 Chronic obstructive pulmonary disease with (acute) exacerbation; J44.0 Chronic obstructive pulmonary disease with (acute) lower respiratory infection; E11.9 Type 2 diabetes mellitus without complications; Z79.4 Long term (current) use of insulin; I10 Essential (primary) hypertension; F20.9 Schizophrenia, unspecified; I48.91 Unspecified atrial fibrillation; Z99.81 Dependence on supplemental oxygen; K21.9 Gastro-esophageal reflux disease without esophagitis; F31.9 Bipolar disorder, unspecified; F17.210 Nicotine dependence, cigarettes, uncomplicated
CPT/HCPCS: 36415; 36600; 71010; 80053; 82803; 83036; 83880; 85025; 87070; 87205; 93005; 93010; 94640; 94644; 94660; 94668; 94760; 97110; 97116; 97162; 97165; J0692; J1652; J1956; J2930; J7120; J7512

== ENCOUNTER 2017-01-28 18:38 | Observation (INO) | payer MEDICARE, OTHER ==
[~2017-01-28] VITALS: Ht 165.1 cm; Wt 72.3 kg
[~2017-01-28 18:38] MED LIST changes: +ESTRADIOL1 MG PO; +NICOTINE1 EAC1 TD; +ULTRAM50 MG PO
[2017-01-28] MEDS ORDERED: LORAZEPAM0.5 MG PO ×2 (19:03→19:06)
[2017-01-28] MEDS ORDERED: METAMUCIL0.52 GM PO (19:09)
--- NOTE | 2017-01-28 21:50 | NUR ---
61YR OLD WOMAN ADMITTED FROM ER VIA STRETCHER TO ROOM 119. PT IS ALERT, ORIENTED, ABLE TO SLIDE FROM STRETCHER TO BED WITH MIN ASSISTANCE. PT IS WEARING BIPAP PLACED IN ER. NS BOLUS JUST COMPLETED. DENIES NEED TO VOID, CLOTHING REMOVED, POSITIONED FOR COMFORT, ORIENTED TO ROOM AND CALL LIGHT. RT IN ROOM WITH PT.
--- NOTE | 2017-01-28 22:06 | EKG ---
[facility] [address] [facility] [address] [facility] [place] [address] Signed Sinus tachycardia Biatrial enlargement Rightward axis Pulmonary disease pattern Abnormal ECG Confirmed by CRISTI BASS MD ([id number]) on 01/28/2017 10:06:24 PM Electronically Signed By: CRISTI BASS MD 01/28/17 2206 PATIENT NAME: ALEXANDRA ALFORD Electrocardiogram DATE OF : 57 PHYSICIAN: CRISTI BASS MD REPORT #: [id number] REPORT IS CONFIDENTIAL AND NOT TO BE RELEASED WITHOUT AUTHORIZATION
--- NOTE | 2017-01-28 22:30 | NUR ---
RECEIVED REPORT FROM CABLE INSTALLER. PT AT THIS TIME IS IN BED SLEEPING.
--- NOTE | 2017-01-29 00:20 | NUR ---
PT IS SLEEPING AT THIS TIME.
--- NOTE | 2017-01-29 02:30 | NUR ---
PT IS SLEEPING ON AND OFF. PT IS STILL ON BI-PAP. PT RECEIVED TYLENOL 500MG PO FOR HEADACHE. ALL LOBES AT THIS TIME HAVE EXIPRATORY WHEEZING. PT DENIES SOB AT THIS TIME.
--- NOTE | 2017-01-29 04:42 | NUR ---
PT IS SLEEPING AT THIS TIME. I ASSISTED PT TO BSC A LITTLE EARLIER. PT WANTED TO SIT UP IN CHAIR. PT IS ON BI-PAP STILL. O2 SATS ARE =/>90%.
--- NOTE | 2017-01-29 05:28 | NUR ---
V/S OVERALL HAVE BEEN WDL. PT HAS BEEN ALERT AND ORIENTED SINCE ARRIVAL ON FLOOR. PT HAS REMAINED ON BI-PAP SINCE ARRIVAL ON FLOOR, PT HAS ALSO SLEPT FOR THE MOST PART SINCE ARRIVAL ON THE FLOOR. ASSISTED PT X1 TO [facility]. BG AT ARRIVAL TO FLOOR WAS 136. SUGAR FREE SNACKS HAVE BEEN PROVIDED. ALL LOBES HAVE EXPIRATORY WHEEZING. PT HAS DENIED SOB SO FAR. O2 SATS HAVE REMAINED AT OR ABOVE 90% WHEN ON BI-PAP. BOWEL TONES ARE PRESENT, NO PERIPHERAL EDEMA NOTED. PT HAS PRN TYLENOL FOR HEADACHES.
--- NOTE | 2017-01-29 07:50 | NUR ---
PT SITTING UP IN RECLINER EATING BREAKFAST. CHECKED PT'S BG, 111. PT DENIED PAIN. IS ON 4.5L O2 VIA NC, OXYGEN SATURATION LEVEL 91%. PT HAS EXPIRATORY WHEEZES THROUGHOUT LUNG FITCH, WITH DIMINISHED BASES.
--- NOTE | 2017-01-29 10:20 | NUR ---
DR. BASS IN TO SEE PT, DISCUSSED PLAN OF CARE. GAVE PT A CHOCOLATE GLUCERNA. PT DENIED OTHER NEEDS AT THIS TIME. PT ON 5L O2 VIA NC.
--- NOTE | 2017-01-29 17:27 | NUR ---
PT SITTING UP IN RECLINER EATING DINNER. DENIED PAIN, DENIED NEEDS AT THIS TIME.
--- NOTE | 2017-01-29 18:45 | NUR ---
PT SAT UP IN RECLINER MOST OF SHIFT. HAD O2 ON 4-5 L VIA NC TO MAINTAIN OXYGEN SATURATION LEVELS 90% OR GREATER. LUNGS VERY DIMINISHED THROUGHOUT, WITH OCCASIONAL EXPIRATORY WHEEZES. PT ALERT, ORIENTED X 4. VOIDED QUANTITY SUFFICIENT URINE, NO BM NOTED OR REPORTED. PT UP WITH 1 PERSON ASSIST, SHORT OF BREATH WITH EXERTION.
--- NOTE | 2017-01-29 19:05 | NUR ---
REPORT RECVD FROM MARCIA HICKS. PT AWAKE WATCHING TV. O2 IN PLACE, BIPAP IN ROOM. NS @ 100 INFUSING. PT STATES SHE HAS HAD A GOOD DAY. NO FURTHER NEEDS AT THIS TIME, CALL LIGHT IN REACH.
--- NOTE | 2017-01-29 20:29 | NUR ---
ASSISTED PATIENT TO USE THE COMMODE AND BACK TO BED. DID WASH FACE. REFILLED ICE WATER. CALL LIGHT WITHIN REACH.
--- NOTE | 2017-01-29 21:20 | NUR ---
IN TO SEE PT, PT AWAKE WATCHING TV. ASSESSMENT COMPLETE AND PM MEDICATIONS GIVEN. PT RATES PAIN A 2-3/10 IN HER HEAD, PRN TYLENOL GIVEN. NS @ 100 MLS PER HOUR INFUSING. O2 CURRENTLY @ 4L. PT ASSISTED UP TO BSC, TOLERATED WELL. ASSISTED BACK TO BED. NO FURTHER NEEDS AT THIS TIME, CALL LIGHT IN REACH.
--- NOTE | 2017-01-30 00:30 | NUR ---
IN TO CHECK ON PT, PT APPEARS TO BE SLEEPING. O2 IN PLACE. RR EVEN AND UNLABORED. CALL LIGHT IN REACH.
--- NOTE | 2017-01-30 01:01 | NUR ---
PATIENT ASKED FOR COFFEE AND TURKEY SANDWICH.
--- NOTE | 2017-01-30 02:22 | NUR ---
PATIENT CALLED TO USE THE COMMODE. STANDBY ASSIST BACK TO BED. ICE WATER REFILLED. CALL LIGHT WITHIN REACH.
--- NOTE | 2017-01-30 02:23 | NUR ---
IN TO CHECK ON PT, PT AWAKE. PT STATES SHE HAS BEEN UNABLE TO SLEEP. PT STATES " I HAVEN'T HAD MT ATIVAN WHILE I AM HERE." PT STATES SHE NORMALLY TAKES ATIVAN FOR SLEEP. LET PT KNOW THAT WILL DISCUSS WITH DAY SHIFT AND MD IN THE AM. PT AGREES. NO FURTHER NEEDS AT THIS TIME. CALL LIGHT IN REACH.
--- NOTE | 2017-01-30 04:09 | NUR ---
IN TO CHECK ON PT, PT APPEARS TO BE SLEEPING. O2 PER NC IN PLACE. RR EVEN AND UNLABORED. NO APPARENT DISTRESS NOTED. CALL LIGHT IN REACH.
--- NOTE | 2017-01-30 04:53 | NUR ---
PT HAS HAD UNEVENTFUL SHIFT, SLEPT INTERMITTANTLY. O2 PER NC @ 3L. PT HAS NOT REQUIRED BIPAP DURING SHIFT. 1 PERSON ASSIST TO BSC. LUNG SOUND DIMINISHED WITH WHEEZES THROUGH OUT. VITAL SIGNS WNL. PT AAO X3 AND PLEASANT. PRN TYLENOL GIVEN FOR JANSEN.
--- NOTE | 2017-01-30 07:33 | NUR ---
PT SITTING UP IN BED WATCHING TV. DENIED PAIN, DENIED NAUSEA. REPORTS THAT HER SHORTNESS OF BREATH FELT IMPROVED FROM YESTERDAY, BUT IS STILL SHORT OF BREATH AT REST AND WITH ACTIVITY. PT IS ON 3L O2 VIA NC.
--- NOTE | 2017-01-30 08:45 | NUR ---
PATIENT TO COMMODE WITH STANDBY ASSIST. BED BATH AND ORAL CARE DONE. LINENES CHANGED. NO OTHER NEEDS AT THIS TIME.
--- NOTE | 2017-01-30 08:54 | NUR ---
INFLUENZA VACCINE GIVEN IN LEFT DELTOID. PT TOLERATED WELL.
--- NOTE | 2017-01-30 09:00 | NUR ---
WOOL SACKER VALERY HICKS IN TO SPEAK WITH PATIENT.
--- NOTE | 2017-01-30 09:20 | NUR ---
PATIENT SEEMS TO UNDERSTAND HOSPICE PLAN. STATES "I JUST WANT TO GO HOME". DISCUSSED THAT THE HOSPICES NURSES WILL SEE HER THIS WEEK AT [facility]. NO FURTHER QUESTIONS.
--- NOTE | 2017-01-30 09:43 | NUR ---
PT SITTING UP IN BED, DRINKING WATER. PT DENIED NEEDS. REMAINS ON 3L 02 VIA VT.
--- NOTE | 2017-01-30 10:11 | NUR ---
Helped pt. to bedside commode. had 275 out.
[2017-01-30] MEDS ORDERED: PREDNISONE5 MG PO (10:29)
[2017-01-30] MEDS ORDERED: PREDNISONE20 MG PO (10:29)
--- NOTE | 2017-01-30 10:29 | NUR ---
DR. BASS TO PT'S ROOM, DISCUSSED PLAN FOR PT TO DISCHARGE TO [facility], HER HOME, TODAY, AND TO ENTER HOSPICE. PT VERBALIZED UNDERSTANDING. QUESTIONS ASKED AND ANSWERED. PROVIDED PT WITH ICE WATER AND SUGAR FREE PUDDING PER HER REQUEST. PT DENIED OTHER NEEDS.
--- NOTE | 2017-01-30 10:58 | NUR ---
PATIENT IN BED. DULCE READING DISCHARGE INSTRUCTIONS.
--- NOTE | 2017-01-30 11:23 | NUR ---
PT GIVEN DISCHARGE INSTRUCTIONS. QUESTIONS ASKED AND ANSWERED, PT VERBALIZED UNDERSTANDING. PT GETTING DRESSED WITH ASSISTANCE FROM GENE FOREMAN. PT PLANS TO EAT LUNCH HERE, THEN DISCHARGE TO HOME VIA W/C TAXI.
--- NOTE | 2017-01-30 11:36 | NUR ---
PATIENT WAS ADMITTED AT HIGH RISK FOR MALNUTRITION DUE TO DECREASED APPETITE AND UNSURE OF RECENT WEIGHT LOSS. PATIENT HAS SEVERE END STAGE COPD. SHE LIKELY WILL GO BACK TO [facility] ON HOSPICE. CURRENT DIET IS 1800 ADA. NO NUTRITION INTERVENTION DONE AT THIS TIME. WILL REMAIN AVAILABLE IF NEEDED.
--- NOTE | 2017-01-30 11:39 | NUR ---
PT SITTING UP IN BED-ALERT AND MOSTLY ORIENTED. SHE RECOGNIZED ME FROM PREVIOUS VISITS. PT MENTIONED THAT SHE THOUGHT SHE WOULD BE DC'D TODAY. REQUESTED PRAYER, WILL CONTINUE TO FOLLOW
== END 2017-01-30 12:26 | disposition home or self-care (01) ==
LOC: ED 18:38 → MS 18:40
PROVIDERS: ADMIT Internal Medicine
PROC: 5A09357 Assistance with Respiratory Ventilation, Less than 24 Consecutive Hours, Continuous Positive Airway Pressure (ICD-10-PCS; principal; 2017-01-28)
DX: J96.21 Acute and chronic respiratory failure with hypoxia (principal); J96.22 Acute and chronic respiratory failure with hypercapnia; J44.1 Chronic obstructive pulmonary disease with (acute) exacerbation; F17.210 Nicotine dependence, cigarettes, uncomplicated; F20.9 Schizophrenia, unspecified; I10 Essential (primary) hypertension; E11.9 Type 2 diabetes mellitus without complications; K21.9 Gastro-esophageal reflux disease without esophagitis; I48.91 Unspecified atrial fibrillation; E61.1 Iron deficiency; Z66 Do not resuscitate; Z88.0 Allergy status to penicillin; Z88.8 Allergy status to other drugs, medicaments and biological substances; Z79.84 Long term (current) use of oral hypoglycemic drugs; Z79.1 Long term (current) use of non-steroidal anti-inflammatories (NSAID); Z99.81 Dependence on supplemental oxygen; Z79.890 Hormone replacement therapy; Z79.891 Long term (current) use of opiate analgesic; Z79.51 Long term (current) use of inhaled steroids; Z79.52 Long term (current) use of systemic steroids; Z79.899 Other long term (current) drug therapy; Z23 Encounter for immunization
CPT/HCPCS: 36415; 36600; 71010; 80048; 80053; 82803; 83880; 84484; 85025; 90674; 93005; 93010; 94640; 94645; 94660; 94667; 94668; 96372; 96374; 96376; 99285; G0008; G0378; J1652; J2930; J7030

== ENCOUNTER 2017-02-05 01:27 | Emergency (ER) | payer MEDICARE, OTHER ==
[~2017-02-05] VITALS: Ht 165.1 cm; Wt 79.4 kg
[~2017-02-05 01:27] MED LIST changes: +METAMUCIL0.52 GM PO
[2017-02-05] MEDS ORDERED: CEROVITE SENIO1 EACH PO (02:43)
[2017-02-05] MEDS ORDERED: INCRUSE ELLI62.5 MCG INH (02:46)
[2017-02-05] MEDS ORDERED: NICOTINE1 EAC1 TD (02:55)
[2017-02-05] MEDS ORDERED: PREDNISONE20 MG PO ×2 (02:58→04:00)
== END 2017-02-05 05:30 | disposition home or self-care (01) ==
LOC: ED 01:27
DX: J44.1 Chronic obstructive pulmonary disease with (acute) exacerbation (principal); E11.9 Type 2 diabetes mellitus without complications; I10 Essential (primary) hypertension; K21.9 Gastro-esophageal reflux disease without esophagitis; F31.9 Bipolar disorder, unspecified; I48.91 Unspecified atrial fibrillation; F17.200 Nicotine dependence, unspecified, uncomplicated; Z90.710 Acquired absence of both cervix and uterus; Z88.0 Allergy status to penicillin; Z79.899 Other long term (current) drug therapy; Z79.52 Long term (current) use of systemic steroids; Z79.84 Long term (current) use of oral hypoglycemic drugs
CPT/HCPCS: 36600; 71010; 80053; 82803; 83735; 84484; 85025; 94640; 94660; 96374; 99284; J2930

== ENCOUNTER 2017-02-09 18:08 | Inpatient (IN) | payer MEDICARE, OTHER ==
[~2017-02-09] VITALS: Ht 165.1 cm; Wt 79.9 kg
--- NOTE | 2017-02-09 21:55 | NUR ---
ADMISSION ASSESSMENT COMPLETE. ATIVAN GIVEN PER PT REQUEST FOR SLEEP, GIVEN. PT PUT ON BPAP BY RT. POLST FORM RECVD FROM [facility], PT DNR/DNI. VERIFIED WITH DR. GONZALEZ, ORDER IN CHART. PT RESTING AT THIS TIME, NO FURTHER NEEDS, CALL LIGHT IN REACH.
--- NOTE | 2017-02-09 21:55 | NUR ---
DR. GONZALEZ NOTIFIED ABOUT PT'S CONCERN ABOUT BLOOD SUGAR. PER DR. GONZALEZ WILL CHECK CBG VIA LAB DRAW IN AM AND PROCEED FROM THAT POINT. PT NOTIFIED.
--- NOTE | 2017-02-09 23:56 | NUR ---
IN TO CHECK ON PT, PT SLEEPING. RR 24-28 ON BIPAP. PT AWAKENS TO TOUCH. PT REQUESTING MORPHINE FOR SOB. MORPHINE 2 MG IV GIVEN. PT GIVEN WATER PER REQUEST. NO FURTHER NEEDS AT THIS TIME. CALL LIGHT IN REACH.
--- NOTE | 2017-02-10 00:36 | NUR ---
IN TO CHECK ON PT, PT REQUESTING FOOD. O2 ON PER RT. PT STATES SHE "FEELS LIKE IT IS EASIER TO TALK NOW." LUNCH BOX GIVEN PER REQUEST. NO FURTHER NEEDS AT THIS TIME, CALL LIGHT IN REACH.
--- NOTE | 2017-02-10 02:30 | NUR ---
IN TO CHECK ON PT, PT APPEARS TO BE SLEEPING. BIPAP IN PLACE. NO APPARENT DISTRESS NOTED. CALL LIGHT IN REACH.
--- NOTE | 2017-02-10 04:30 | NUR ---
PT CALLED, ASIISTED UP TO BSC VIA PIVOT TRANSFER. O2 @ 3L PER NC. REFINED SYRUP OPERATOR IN ROOM TO ASSIST PT BACK TO BED. PT REQUESTING TYLENOL FOR NECK PAIN. IN TO SEE PT, TYLENOL GIVEN FOR 09/26 NECK PAIN. PT APPEARS TO BE SOB. WHEN ASKED PT STATES HER SOB IMPROVED "A LITTLE BIT." OFFERED MORPHINE FOR SOB. PT REQUEST MORPHINE 1 MG, PT STATES " I WANT TO STAY AWAKE FOR A WHILE." MORPHINE 1 MG GIVEN PER REQUEST. PT RESTING IN BED. NO FURTHER NEEDS AT THIS TIME, CALL LIGHT IN REACH.
--- NOTE | 2017-02-10 05:14 | NUR ---
PT HAS RESTED INTERMITTENTLY. O2 @ 3L WHILE AWAKE, BIPAP WHILE SLEEPING. PT RECVD MORPHINE FOR SOB AND TYLENOL FOR JANSEN. INCREASE SOB WITH AMBULATION, PIVOT TRANSFER TO BSC. PT ON A DYSPHAGIA DIET DUE TO DENTAL ISSUES. AAOX3, CALLS APPROP.
--- NOTE | 2017-02-10 06:34 | NUR ---
ASSISTED PT UP TO BSC. WHEN ASSESSING FOR FENTANYL PATCH ORDERED IN ER, NO PATCH NOTED ON PT. AFTER REVIEWING EMAR ORDER WRITTEN TO D/C PATCH, NO NOT OF ORDER TO APPLY PATCH. PER DR. GONZALEZ APPLY FENTANYL 25 MCG PATCH NOW, REPLACE IN 72 HOURS. VERIFIED BY READ BACK METHOD.
--- NOTE | 2017-02-10 07:18 | NUR ---
BEDSIDE HANDOFF REPORT RECEIVED FROM FAILURE ANALYSIS ENGINEER RN. PT RESTING IN BED, ON 3L NC. PT DENIES NEEDS AT THIS TIME.
--- NOTE | 2017-02-10 07:46 | EKG ---
[facility] [address] [facility] [place] [address] Signed Sinus tachycardia with premature atrial complexes Right atrial enlargement Right axis deviation Pulmonary disease pattern Abnormal ECG Confirmed by KRISTY GONZALEZ MD ([id number]) on 02/10/2017 7:46:03 AM Electronically Signed By: KRISTY GONZALEZ MD 02/10/17 0746 PATIENT NAME: ALEXANDRA ALFORD Electrocardiogram DATE OF : 57 PHYSICIAN: KRISTY GONZALEZ MD REPORT #: [id number] REPORT IS CONFIDENTIAL AND NOT TO BE RELEASED WITHOUT AUTHORIZATION
--- NOTE | 2017-02-10 08:15 | NUR ---
PT CALLED TO SAY SHE WAS DONE USING THE BEDSIDE COMMODE. ASSSISTED PT BACK TO BED. NOW RESTING SAFELY WITH CALL LIGHT IN REACH.
--- NOTE | 2017-02-10 08:55 | NUR ---
PT RESTING IN BED. PT ALERT/ORIENTED. PT RATING PAIN 5-6/10 TO NECK, DISCUSSED PAIN MANAGEMENT, PT REQUESTION 2 MG IV MORPHINE, GIVEN. PT LUNG SOUNDS DIMINISHED, ON 3L NC, DOES NOT APPEAR TO BE IN RESP DISTRESS AT THIS TIME, DENIES SOB. PT TOLERATING PUREED DIET, DENIES NAUSEA, BOWEL TONES ACTIVE. PT WEITH EDEMA TO BLE, 2+ LEFT, 1+ RIGHT, LEGS COOL TO THE TOUCH. PT DENIES NUMBNESS AND TINGLING. PT UP TO BSC WITH 1PA. PT DENIES OTHER NEEDS AT THIS TIME.
--- NOTE | 2017-02-10 09:05 | NUR ---
pt up to bedside of the commode at this time. offered shower/bedbath and pt refused. pt said she just wanted her underwear changed and was assisted with that. no other requests at this time.
--- NOTE | 2017-02-10 10:16 | NUR ---
PT RESTING COMFORTABLY IN BED. PT RATING PAIN 4/10, STATES "IT IS A LITTLE BETTER". PT REQUESTING PUDDING, PROVIDED. PT DENIES OTHER NEEDS AT THIS TIME.
--- NOTE | 2017-02-10 10:41 | NUR ---
CALLED TO SAY SHE WAS DONE USING BEDSIDE COMMODE. ASSISTED PT BACK TO BED, NOW RESTING SAFELY WITH CALL LIGHT IN REACH
--- NOTE | 2017-02-10 10:45 | NUR ---
PATIENT CALLED NEEDED TO USE THE BEDSIDE COMMODE.
--- NOTE | 2017-02-10 15:15 | NUR ---
PT ASSISTED BACK TO BED FROM BSC, VOIDING QS. FENTANYL PACTH ON BEDSIDE ABLE PT STATES PATCH FELL OFF, REPLACEMENT PATCH APPLIED TO LEFT SHOULDER, COVERED WITH OPSITE. PT WITH RASH UNDERNEATH BILATERAL BREASTS, NIO ORDER FOR NYSTATIN POWDER. PT DENIES OTHER NEEDS AT THIS TIME.
--- NOTE | 2017-02-10 15:45 | NUR ---
PT ASSISTED BACK TO BED. GIVEN 2 MG IV MORPHINE FOR PAIN 08/27. PT PLACED ON BIPAP PER REQUEST. PT DENIES OTHER NEEDS AT THIS TIME.
--- NOTE | 2017-02-10 16:40 | NUR ---
PT ASSISTED TO BSC AND BACK TO BED. DISCUSSED PAIN MANAGEMENT, PT REQUESTING PAIN MEDICATION AFTER DINNER. PT PROVIDED WITH ACTIVITIES AND PUZZLES. PT DENIES OTHER NEEDS AT THIS TIME.
--- NOTE | 2017-02-10 19:15 | NUR ---
ROUNDED CHARGE. PATIENT DENIES ANY COMMENTS, QUESTIONS OR CONCERNS. CALL LIGHT IN REACH.
--- NOTE | 2017-02-10 19:15 | NUR ---
RECEIVED REPORT FROM RN. PATIENT IS RESTING COMFORTABLY IN BED ON BIPAP. CALL LIGHT WITHIN REACH.
--- NOTE | 2017-02-10 19:56 | NUR ---
PATIENT IN BED DOING WELL. BREWING DECAF COFFEE FOR HER. TAKEN TO BEDSIDE COMMODE. WHITEBOARD UPDATED, ROOM TIDIED.
--- NOTE | 2017-02-10 20:43 | NUR ---
PATIENT IS RESTING COMFORTABLY IN BED. BREATHING APPEARS LABORED, 02 SATURATION IS 89% ON 3L O2, PATIENT REPORTS STATES "I FEEL JUST A LITTLE OUT OF BREATH." 2MG MORPHINE GIVEN PER EMAR. TYLENOL GIVEN FOR 09/26 HEADACHE. DENIES FURTHER NEEDS AT THIS TIME. ASSESSMENT DONE. CALL LIGHT WITHIN REACH.
--- NOTE | 2017-02-11 00:01 | NUR ---
PATIENT DOING WELL. DOES NOT NEED ANYTHING AT THIS TIME
--- NOTE | 2017-02-11 00:16 | NUR ---
PATIENT REPORTS 6/10 HEADACHE, PRN TYLENOL GIVEN PER EMAR. DENIES OTHER NEEDS AT THIS TIME. CALL LIGHT WITHIN REACH.
--- NOTE | 2017-02-11 02:02 | NUR ---
PATIENT CALLED TO BE TAKEN OFF BIPAP TO BE TAKEN TO COMMODE. DOING WELL OTHERWISE.
--- NOTE | 2017-02-11 02:38 | NUR ---
PATIENT IS RESTING COMFORTABLY IN BED, BREATHING IS EVEN AND UNLABORED. DENIES NEEDS AT THIS TIME. ASSESSMENT DONE. CALL LIGHT WITHIN REACH.
--- NOTE | 2017-02-11 03:39 | NUR ---
PATIENT STATES SHE IS FEELING SHORT OF BREATH. PRN MORPHINE GIVEN PER EMAR. DENIES OTHER NEEDS AT THIS TIME. CALL LIGHT WITHIN REACH.
--- NOTE | 2017-02-11 04:02 | NUR ---
PATIENT DOING WELL. DOES NOT NEED ANYTHING AT THIS TIME.
--- NOTE | 2017-02-11 04:52 | NUR ---
PATIENT REPORTS HEADACHE. PRN TYLENOL GIVEN PER EMAR. DENIES FURTHER NEEDS AT THIS TIME. CALL LIGHT WITHIN REACH.
--- NOTE | 2017-02-11 05:40 | NUR ---
PATIENT APPEARS ANXIOUS IN BED WITH LABORED BREATHING 02 SATURATION IS 98% ON 3L O2. PATIENT IS REFUSING PRN ATIVAN. EDUCATED PATIENT ABOUT 02 SATURATION WITH COPD AND EDUCATED PATIENT ABOUT THE BENEFTIS OF BIPAP. PATIENT WAS AGREEABLE TO WEARING BIPAP. 2MG PRN MORPHINE ALSO GIVEN PER EMAR. CALL LIGHT WITHIN REACH.
--- NOTE | 2017-02-11 05:44 | NUR ---
PATIENT'S NIGHT WAS UNEVENTFUL. SHE HAS BEEN RESTING ON AND OFF THROUGHOUT THE SHIFT. VSS. PATIENT HAS BEEN COMPLAINING OF HEADACHE, PRN TYLENOL GIVEN. AT TIMES, PATIENT IS SHORT OF BREATH AT TIMES, BUT RESPONDS WELL TO BIPAP. PRN MORPHINE GIVEN THROUGHOUT SHIFT FOR COMFORT AND SHORTNESS OF BREATH. PATIENT IS A SBA TO BEDSIDE COMODE AND IS SALINE LOCKED. NO ACUTE CHANGES FROM BEGINNING OF SHIFT ASSESSMENT.
--- NOTE | 2017-02-11 07:06 | NUR ---
PATIENT RESTING COMFORTABLY IN BED, BREATHING IS EVEN AND UNLABORED ON BIPAP. CALL LIGHT WITHIN REACH.
--- NOTE | 2017-02-11 07:15 | NUR ---
BEDSIDE HANDOFF REPORT RECEIVED FROM RUN BOAT OPERATOR RN. PT RESTING IN BED. RESQUESTING TO TAKE BIPAP OFF, SWITCHED TO NASAL CANNULA. PT PROVIDED FRESH WATER. ASSISTED TO BSC. PT DENIES OTHER NEEDS AT THIS TIEM.
--- NOTE | 2017-02-11 07:42 | NUR ---
I UPDATED THE BOARD PATIENT IS UP IN BED AND I HELPED SET HER UP FOR BREAKFAST SHE SAID SHE DIDNT NEED ANY ASSISTANCE AT THIS TIME
--- NOTE | 2017-02-11 09:00 | NUR ---
PT RESTING IN BED. PT SOB, COMPLAINT OF DIZZINESS. 02 SATS 78% ON 2L NC, INCREASED TO 3L, O2 SATS UP TO 92. PT DENIES NAUSEA, BOWEL TONES ACTIVE, TOLERATING PUREED DIET. PT WITH EDEMA TO BLE 2+ IN LEFT 1+ IN RIGHT, EXTREMITIES COOL TO THE TOUCH, DENIES NUMBNESS AND TINGLING. IV SLAINE LOCKED. MD TO BEDSIDE TO EVAULATE PT, PLAN TO BEGIN MORPHINE GGT FOR SOB, PT AGREEABLE TO PLAN. PT DENIES OTHER NEEDS AT THIS TIME.
--- NOTE | 2017-02-11 09:24 | NUR ---
PT IN BED AWAKE. PT IN IN PAIN, LET NURSE SARA KNOW.
--- NOTE | 2017-02-11 11:15 | NUR ---
MORPHINE GGT BEGAN, SECOND RN VERIFICATION WITH DOE MUNOZ RN. PT RESTING IN BED, ON 3L NC. PT DENIES OTHER NEEDS AT THIS TIME.
--- NOTE | 2017-02-11 11:24 | NUR ---
patient is resting in bed
--- NOTE | 2017-02-11 12:49 | NUR ---
PT CALLED OUT FOR HELP, STATES "I CAN'T DO IT", UNABLE TO COMMUNICATE, UNABLE TO ANSWER QUESTIONS. BP 118/71, HR 117, RR 22 SHALLOW, O2 SATS 60-82% UNABLE TO OBTAIN RELIABLE READING. PT PLACED ON BIPAP MASK. MD NOTIFIED, PLAN TO CONTINUE WITH BIPAP MASK.
--- NOTE | 2017-02-11 12:50 | NUR ---
PT COLD TO TOUCH, BUT SAID SHE WAS HOT. NOTIFY PT NURSE SARA
--- NOTE | 2017-02-11 12:59 | NUR ---
i was on my luinch break, i heard a pateint yell help, it was 123, she is on apca she looked drained of color, and her saturation was low, culdnt get a real accurate reading, nurse applied bi-pap and notified dr of the changes.
--- NOTE | 2017-02-11 13:52 | NUR ---
PT APPEARS COMFORTBALE, SLEEPING, PROVIDED PILLOW FOR NECK SUPPORT. RR 18, SHALLOW, BIPAP IN PLACE. PT ALLOWED TO REST.
--- NOTE | 2017-02-11 14:05 | NUR ---
CALLED TO ROOM BY STEAM TABLE ATTENDANT, RT FELT PT SHOULD BE SWITCHED TO NASAL CANNULA, SWITCHED TO 3L. PT COLOR PALE ASHENED, CHEST FLUSHED. PT BRETAHING SHALLOWLY. UNABLE TO FOLLOW COMMANDS, OPENS EYES BRIEFLY WHEN NAMES CALLED OUT. NOTFIED, PLAN TO CONTINUE WITH COMFORT MEASURES. PT TO BE SWITCHED TO SWING BED WITH COMFORT CARE.
== END 2017-02-11 14:00 | disposition swing bed (61) | DRG 189 ==
LOC: ED 18:08 → MS 18:09
PROVIDERS: ADMIT Internal Medicine
DX: J96.22 Acute and chronic respiratory failure with hypercapnia (principal); Z51.5 Encounter for palliative care; R53.81 Other malaise; J44.9 Chronic obstructive pulmonary disease, unspecified; F17.210 Nicotine dependence, cigarettes, uncomplicated; Z66 Do not resuscitate; E11.9 Type 2 diabetes mellitus without complications; Z79.4 Long term (current) use of insulin
CPT/HCPCS: 36600; 71010; 80053; 82803; 83605; 85025; 93005; 93010; 94640; 94660; J2060; J2270; J2930; J7040

== ENCOUNTER 2017-02-11 14:00 | Inpatient (IN) | payer MEDICARE, OTHER ==
[~2017-02-11] VITALS: Ht 165.1 cm; Wt 79.9 kg
--- NOTE | 2017-02-11 15:01 | NUR ---
PT NOW SWING BED FOR COMFORT MEASURES ONLY. PT RESTING IN BED, UNRESPONSIVE TO VOICE. PT WITH MORPHINE GGT PER ORDER, RECEIVING 4 MG/HR. PT ASSESSED FOR INCONTINENCE, BRIEFS IN PLACE, DRY. THERAPEUTIC TOUCH AND TALK. PT ON 3L NC, O2 SATS 71%.
--- NOTE | 2017-02-11 16:02 | NUR ---
PT RESTING IN BED. WILL CHECK BACK.
--- NOTE | 2017-02-11 16:07 | NUR ---
PT IS RESTING IN BED. WILL CHECK BACK.
--- NOTE | 2017-02-11 16:09 | NUR ---
PT RESTING IN BED CHECK BACK LATER
--- NOTE | 2017-02-11 17:05 | NUR ---
PT WITH SECRETIONS, DROOLING. ORDER FOR SCOPALAMINE PATCH, PLACED BEHIND LEFT EAR. PT BREATHING SHALLOW AND IRREGULAR. HR IRREGULAR, PERIPHERAL PULSES FAINT. PT APPEARS COMFORTABLE. PT WITH PERSPIRATION, COOL CLOTH TO FOREAHEAD.
--- NOTE | 2017-02-11 17:44 | NUR ---
PT TRANSITIONED TO SWING BED FOR COMFORT CARE. PT ON 3L NC. PT ON MORPHINE GGT AT 4 MG/HR. SCOPALAMINE PATCH PLACED BEHIND LEFT EAR. NICOTINE PATCH IN PLACE ON RIGHT ARM. PT APPEARS COMFORTBALE. BRETAHING SHALLOW AND IRREGULAR.
--- NOTE | 2017-02-11 17:46 | NUR ---
PT IS RESTING. CHECK BACK LATER
--- NOTE | 2017-02-11 19:00 | NUR ---
PT RESTING IN BED
--- NOTE | 2017-02-11 19:15 | NUR ---
RECEIVED REPORT FROM RN. PATIENT IS RESTING COMFORTABLY IN BED, BREATHING IS EVEN AND SHALLOW. SHE DOES NOT RESPOND TO VERBAL STIMULI. CALL LIGHT WITHIN REACH.
--- NOTE | 2017-02-11 20:00 | NUR ---
PATIENT RESTING COMFORTABLY IN BED, BREATHING IS UNEVEN AND AGONAL. NO APPARENT SIGNS OF DISCOMFORT. FLACC SCORE OF 0.
--- NOTE | 2017-02-11 21:00 | NUR ---
PATIENT RESTING COMFORTABLY IN BED. BREATHING CONTINUES TO HAVE AGONAL BREATHING WITH PERIODS OF APNEA. FLACC SCORE OF 0.
--- NOTE | 2017-02-11 21:52 | NUR ---
PATIENT RESTING COMFORTABLY IN BED. BREATHING CONTINUES TO BE AGONAL. HEART RATE IS 83, FLACC SCORE OF 0.
--- NOTE | 2017-02-11 22:14 | NUR ---
PATIENT RESTING COMFORTABLY IN BED, BREATHING CONTINUES TO BE AGONAL. FLACC SCORE OF 0.
--- NOTE | 2017-02-11 22:47 | NUR ---
PATIENT RESTING COMFORTABLY IN BED. BREATHING IS AGONAL WITH APNEIC EPISODES OF 5 SECONDS. FLACC SCORE OF 0. MORPHINE DRIP IN PLACE.
--- NOTE | 2017-02-11 23:23 | NUR ---
PATIENT IS RESTING COMFORTABLY IN BED, BREATHING IS AGONAL. FLACC SCORE OF 0.
--- NOTE | 2017-02-12 00:03 | NUR ---
PATIENT RESTING COMFORTABLY IN BED, BREATHING IS AGONAL. FLACC SCORE OF 0. REPOSITIONED FOR COMFORT, HEEL PROTECTORS PUT ON. CHAPSTICK APPLIED TO LIPS. PATIENT'S ATTEND IS DRY.
--- NOTE | 2017-02-12 01:01 | NUR ---
PATIENT RESTING COMFORTABLY IN BED, BREATHING CONTINUES TO BE AGONAL. FLACC SCORE OF 0. CHAPSTICK APPLED AND MOUTH SWAB FOR COMFORT. CONTINUOUS MORPHINE IN PLACE.
--- NOTE | 2017-02-12 01:29 | NUR ---
PATIENT IS RESTING COMFORTABLY IN BED, BREATHING REMAINS AGONAL. FLACC SCORE OF 0. MORPHINE DRIP INTACT.
--- NOTE | 2017-02-12 02:53 | NUR ---
PATIENT RESTING COMFORTABLY IN BED, BREATHING REMAINS AGONAL. ERPOSITIONED FOR COMFORT. APPLIED CHAPSTICK. FLACC SCORE OF 0.
--- NOTE | 2017-02-12 03:43 | NUR ---
PATIENT IS RESTING COMFORTABLY IN BED, BREATHING CONTINUES TO BE AGONAL. FLACC SCORE OF 0. MORPHINE DRIP INTACT.
--- NOTE | 2017-02-12 04:19 | NUR ---
PATIENT REPOSITIONED FOR COMFORT. RESTING COMFORTABLY IN BED, BREATHING CONTINUES TO BE AGONAL. APPLIED CHAPSTICK AND MOUTH SWAB. FLACC SCORE OF 0. MORPHINE DRIP INTACT.
--- NOTE | 2017-02-12 05:04 | NUR ---
PATIENT HAS BEEN RESTING COMFORTABLY THROUGHOUT SHIFT. FLACC SCORE HAS REMAINED 0. BREATHING HAS BEEN AGONAL FOR MAJORITY OF SHIFT, BUT HAS SHOWN NO SIGNS OF DISCOMFORT. CURRENTLY ON A MORPHINE DRIP, PROVIDING Q2H TURNS, PRN CHAPSTICK AND MOUTHSWABS. NO ACUTE CHANGES FROM BEGINNING OF SHIFT.
--- NOTE | 2017-02-12 05:24 | NUR ---
PATIENT IS RESTING COMFORTABLY IN BED, BREATHING CONTINUES TO BE AGONAL. FLACC SCORE OF 0, MORPHINE DRIP INTACT.
--- NOTE | 2017-02-12 06:39 | NUR ---
PATIENT RESTING COMFORTABLY IN BED, BREATHING IS AGONAL. REPOSITIONED FOR COMFORT, APPLIED CHAPSTICK AND MOUTH SWAB. MORPHINE DRIP INTACT.
--- NOTE | 2017-02-12 08:00 | NUR ---
PT LYING IN BED, EYES CLOSED, AGONAL BREATHING NOTED, PT UNRESPONSIVE TO ALL STIMULI. SKIN REMAINS INTACT, EXTREMTIES DUSKY AND COOL TO TOUCH. MORPHINE DRIP INFUSING WNL. NO URINE OUTPUT, DR. GONZALEZ AWARE. ORAL CARE COMPLETED.
--- NOTE | 2017-02-12 08:20 | NUR ---
pt resting with eyes closed at this time. pt recently turned with shiftman before shift change. pt left to rest.
--- NOTE | 2017-02-12 11:15 | NUR ---
PT REPOSITINED IN BED. REMAINS OBTUNDED. ORAL CARE COMPLETED. NO URINE OUTPUT.
--- NOTE | 2017-02-12 11:30 | NUR ---
pt is resting in bed with her eyes closed. pt rotated onto her left side. pt still has not voided for this shift.
--- NOTE | 2017-02-12 13:54 | NUR ---
pt resting in bed with eyes closed. pt rotated to left side and oral care was given. call light within reach.
--- NOTE | 2017-02-12 14:33 | NUR ---
pts vitals taken and charted at this time. Janeen-RN notifed of vitals. pt is resting with eyes closed. RR-6 and B/P-61/31. call light within reach. Will continue to turn, give oral care and keep comfortable.
--- NOTE | 2017-02-12 15:04 | NUR ---
PT REPOSITIONED IN BED. EYES CLOSED. ASSESSMENT UNCHANGED.
--- NOTE | 2017-02-12 17:10 | NUR ---
OBSERVED PT NO LONGER BREATHING, NO APICAL PULSE NOTED. DR. BASS, CHARGE NURSE, AND NURSING JOURNEYMAN OPERATOR ASSISTANT NOTIFIED. TIME OF CALLED AT 1700. LINES REMOVED, PT WIPED DOWN.
--- NOTE | 2017-02-12 18:49 | NUR ---
WAS CALLED IN AFTER PT . RADIO HOST CONTACTED [facility] TO GET INFORMATION ABOUT ARRANGEMENTS WITH HOME. JESSY [facility]NDES [facility] INSTRU[facility] ME TO CALL RONN NOVAK WHO TOLD ME THAT PT HAD NO ADVANCE DIRECTIVES BUT THAT SHE HAD ARRANGEMENTS WITH [facility]. JESSY HAD ALREADY INSTRUCTED ME TO CALL [employer]. I CALLED JESSY BACK TO INFORM HIM OF THE INFORMATION I RECEIVED FROM RONN HUDSON. BODY SENT TO [facility]. HOME IS TO CONTACT SAURAV GRUBBS OR VIVEK LEA AT [facility].
== END 2017-02-12 17:00 | DRG 190 ==
LOC: MS 14:00
PROVIDERS: ADMIT Internal Medicine
DX: J44.1 Chronic obstructive pulmonary disease with (acute) exacerbation (principal); J96.21 Acute and chronic respiratory failure with hypoxia; J96.22 Acute and chronic respiratory failure with hypercapnia; F20.9 Schizophrenia, unspecified; I10 Essential (primary) hypertension; Z66 Do not resuscitate; Z51.5 Encounter for palliative care; I48.91 Unspecified atrial fibrillation; E11.9 Type 2 diabetes mellitus without complications; F17.200 Nicotine dependence, unspecified, uncomplicated
CPT/HCPCS: J2270